=== PATIENT | male | born 1955 | race Caucasian/White ===

== ENCOUNTER 2017-04-11 10:29 | Inpatient (IN) | payer OTHER, MEDICAID ==
[2017-04-11] VITALS (10 sets, daily range): BP systolic 74–111; BP diastolic 31–73
[~2017-04-11] VITALS: Ht 182.9 cm; Wt 67.6 kg
[2017-04-11] MEDS ORDERED: NACL 0.9% 1,000 ML IV SCH (10:40)
--- NOTE | 2017-04-11 10:49 | NUR ---
Patient to bed 04 via wheelchair per patient care representative.
--- NOTE | 2017-04-11 10:49 | NUR ---
Nichelle christianson in [facility] - 04/11/17 at 1050 by JULIETA Patient to bed 04 via wheelchair per family member.
--- NOTE | 2017-04-11 10:50 | NUR ---
PT BIB FOREST MANAGEMENT TEACHER FROM [facility] WITH C/O C/O GENERALIZED WEAKNESS, LETHARGIC--LEANING TO RIGHT SIDE UPON [id number] NOTED BY LINOTYPIST "DIANA ARMANDO"-- FULL CLEAR SPEECH, NO FACIAL ASYMMETRY, A/O X4, MOVING ALL EXTREMITIES EQUALLY DENIES N/V/D, DENIES NASAL CONGESTION HX----DEPRESSION, MR, BLINDNESS RX----LEXAPRO, PREDNISONE,KEPPRA, DEPAKENE, POTASSIUM CHL 10MEQ; DENIES N/V/D; SKIN IS PINK/WARM/DRY; AAOX4 WITH EVEN AND STEADY GAIT; LUNGS CLEAR BL; HR EVEN AND REGULAR; PT DENIES ANY FEVER, CP, SOB, OR COUGH AT THIS TIME; PATIENT STATES PAIN OF 0/10 AT THIS TIME; VSS; PATIENT POSITIONED FOR COMFORT; HOB ELEVATED; BEDRAILS UP X2; BED DOWN. ER MD MADE AWARE OF PT STATUS.
[2017-04-11] MEDS ORDERED: cefTRIAXone 2,000 MG in DEXTROSE 5% 100 ML IV ONE (10:55)
[2017-04-11] MEDS ORDERED: IBUPROFEN 800 MG TAB PO ONE (11:00)
[2017-04-11] MEDS ORDERED: ACETAMINOPHEN 650 MG SUPP RC ONE (11:00)
[2017-04-11] MEDS ORDERED: NACL 0.9% 1,000 ML IV ONE (11:00)
[2017-04-11] MEDS ORDERED: ACETAMINOPHEN 325 MG SUPP RC ONE (11:07)
[2017-04-11] MEDS ORDERED: cefTRIAXone 2,000 MG VIAL ONE (11:12)
[2017-04-11 11:33] LABS: HEMOGLOBIN 13.8 g/dL (12.0-18.0); MEAN CORPUSCULAR HEMOGLOBIN 32 pg (27-31); MEAN CORPUSCULAR HGB CONC 34 g/dL (33-37); MEAN CORPUSCULAR VOLUME 96 fL (80-94); PLATELET COUNT (AUTO) 111 K/uL (140-450); RED BLOOD CELL COUNT(AUTO) 4.27 MIL/uL (4.20-6.10); WHITE BLOOD COUNT (AUTO) 13.4 K/uL (4.8-10.8)
[2017-04-11 11:42] LABS: ANION GAP 13.7 (8-16); CALCIUM 8.7 mg/dL (8.5-10.1); CARBON DIOXIDE 28.3 mmol/L (21-32); CREATININE 1.2 mg/dL (0.6-1.3)
[2017-04-11 11:46] LABS: BAND % (MANUAL) 13 % (0-8); BASOPHILS % (MANUAL) 1 % (0-2); EOSINOPHILS % (MANUAL) 1 % (0-4); LYMPHOCYTES % (MANUAL) 7 % (20-46); MONOCYTES % (MANUAL) 7 % (5-12); NEUTROPHILS % (MANUAL) 71 (43-65); PLATELET ESTIMATE ADEQUATE
[2017-04-11 11:49] LABS: LACTIC ACID 1.8 mmol/L (0.4-2.0)
[2017-04-11 11:51] LABS: INR 1.3 (0.8-1.2); PARTIAL THROMBOPLASTIN TIME 29.3 secs (22-35.6); PROTHROMBIN TIME 12.2 secs (10.8-13.4)
[2017-04-11 11:56] LABS: ALBUMIN 2.5 g/dL (3.4-5.0); TOTAL BILIRUBIN 0.6 mg/dL (0.0-1.0); TOTAL PROTEIN, SERUM 6.7 g/dL (6.4-8.2)
--- NOTE | 2017-04-11 12:00 | NUR ---
PT TAKEN OFF THE UNIT BY CHEMO CONDE VIA [facility] FOR CT OF THE HEAD AND CXR
--- NOTE | 2017-04-11 12:17 | NUR ---
Patient back from CT via larry leone.
[2017-04-11 13:04] LABS: BILIRUBIN,URINE 1+ (NEGATIVE); COLOR,URINE YELLOW (YELLOW); LEUKOCYTE ESTERASE ,URINE NEGATIVE (NEGATIVE); NITRITE, URINE NEGATIVE (NEGATIVE); PROTEIN,URINE TRACE (NEGATIVE); UGLUCOSE NEGATIVE (NEGATIVE); UROBILINOGEN,URINE 0.2 EU/dL (0.2 - 1)
[2017-04-11 13:11] LABS: APPEARANCE,URINE SL HAZY (CLEAR)
[2017-04-11 13:12] LABS: BACTERIA,URINE FEW /HPF (None Seen); ICTOTEST NEGATIVE (NEGATIVE); RBC,URINE 3-10 (FEW) /HPF (0-5); SQUAMOUS EPITHELIAL CELL,UR 0-3 (FEW) /LPF (0-3 (FEW)); WBC,URINE 0-5 (RARE) /HPF (0-5)
[2017-04-11 13:13] LABS: BLOOD, URINE 3+ (NEGATIVE)
[2017-04-11 13:15] LABS: AMPHETAMINE, URINE NEG. ng/ml (NEG <=1000); BARBITURATE, URINE NEG. ng/ml (NEG <=200); BENZODIAZEPINE, URINE NEG. ng/mL (NEG <=200); CANNABINOID, URINE NEG. ng/mL (NEG <=50); COCAINE, URINE NEG. ng/mL (NEG <=300); OPIATE, URINE NEG. ng/mL (NEG <=2000); PHENCYCLIDINE SCREEN,URINE NEG. ng/mL (NEG <=25)
[2017-04-11] MEDS ORDERED: DOCUSATE SODIUM 100 MG GELCAP PO PRN (14:05)
[2017-04-11] MEDS ORDERED: ONDANSETRON 4 MG/2 ML VIAL IM/IVP PRN (14:05)
--- NOTE | 2017-04-11 14:30 | NUR ---
Patient will be admitted to care of DR GEORGE. Admited to [facility]. Will go to room 109B. Belongings list completed. Report to RIANA HALEY.
--- NOTE | 2017-04-11 14:35 | NUR ---
RECEIVED PT ON A BED ACCOMPANIED BY ER NURSES, PT LETHARGIC BUT AROUSABLE TO NAME AND SHAKING ALERT ORIENTED TO SELF, NAME AND PLACE BUT UNABLE TO TELL TIME. LUNGS ARE CLEAR. WITH IV ACCESS AT RIGHT FOREARM 20G PATENT AND INTACT. PT ON ROOM AIR, WITH 2+PITTING EDEMA ON LEFT ANKLE, WITH SACRAL REDNESS AND STAGE 1 PRESSURE ULCER ON LEFT HIP, WITH BRUISES ON BILATERAL UPPER EXTREMITIES. OLD SCAR NOTED ON ABDOMEN AND LEFT LOWER QUADRANT, PER PT HE HAS ABDOMINAL AND HERNIA SURGERY IN THE PAST. PHOTOS TAKEN AND AFFIXED IN CHART. FALL PRECAUTIONS ENFORCED. CALL LIGHT WITHIN REACH, WILL CONTINUE TO MONITOR.
[2017-04-11] MEDS ORDERED: POTA10TA10 PO (14:37)
[2017-04-11] MEDS ORDERED: PRED5TAB7 PO (14:37)
[2017-04-11] MEDS ORDERED: ESCI5TAB PO (14:37)
[2017-04-11] MEDS ORDERED: LEVE1000 PO (14:37)
[2017-04-11] MEDS ORDERED: VALP250S20 PO (14:37)
[2017-04-11] MEDS: NACL 0.9% 1,000 ML IV SCH ×2 (15:10→21:20)
[2017-04-11] MEDS: NACL 0.9% 500 ML IV SCH ×2 (15:17→15:55)
--- NOTE | 2017-04-11 15:17 | NUR ---
NOTIFIED DR DASILVA REGARDING PT LOW BP, ADMINISTERED BOLUS OF NS 500ML. WILL REASSESS BP
--- NOTE | 2017-04-11 15:20 | NUR ---
SPOKE TO DIANA ARMANDO CAREGIVER TO OBTAIN FURTHER INFORMATION REGARDING PT
[2017-04-11 15:23] LABS: CHOL/HDL RATIO 2.7 (1-4.5); MAGNESIUM 1.6 mg/dL (1.8-2.4); PHOSPHORUS 2.5 mg/dL (2.5-4.9); THYROID STIMULATING HORMONE 1.28 uIU/mL (0.34-3.76)
--- NOTE | 2017-04-11 15:55 | NUR ---
BP STILL LOW, MD ORDERED ANOTHER BOLUS OF NS 500 ML
[2017-04-11] MEDS ORDERED: MAG SULF 2000 MG/WATER PREMIX 50 ML IV ONE (16:25)
--- NOTE | 2017-04-11 16:30 | NUR ---
DR DASILVA AT BEDSIDE ASSESSING THE PT.
[2017-04-11] MEDS: PIPER/TAZO 3.375GM/D5W PREMIX 50 ML IV SCH ×2 (17:11→23:29)
[2017-04-11] MEDS ORDERED: NACL 0.9% 500 ML IV SCH (18:30)
--- NOTE | 2017-04-11 18:30 | NUR ---
DR DASILVA INFORMED OF PT BP FLUCTUATING BETWEEN SBP 70S-80S, WILL GIVE ANOTHER 500ML BOLUS
--- NOTE | 2017-04-11 18:45 | NUR ---
NOTIFIED DR GEORGE OF VALPROIC ACID CRITICAL VALUE, NO NEW ORDERS.
--- NOTE | 2017-04-11 19:32 | NUR ---
ENDORSED PT TO NEYDA RN IN STABLE CONDITION FOR CONTINUITY OF CARE
--- NOTE | 2017-04-11 19:35 | NUR ---
RECEIVED REPORT FROM RIANA HALEY AT BEDSIDE. INITIAL ASSESSMENT COMPLETED. PT AAOX3; WITH EPISODES OF CONFUSION AT TIMES. PT LAYING IN BED. PT STABLE. VS STABLE. PT HAS SACRAL REDNESS. PT HAS PT HAS BRUISES ON BOTH ARMS. PT HAS A WOUND ON LEFT HIP. PT HAS SCDS ON. PT HAS A STEVEN CATHETER IN PLACE. PT IN BLIND ON BOTH EYES. ORIENTED PT TO ROOM AND SURROUNDINGS AND EXPLAINED PLAN OF CARE TO PT. SAFETY/FALL RISK PRECAUTIONS IN PLACE. WILL CONTINUE TO MONITOR PT. Addendum: 04/12/17 at 0252 by Rissa Coleman RN WRONG ENTRY OF: PT HAS A WOUND ON LEFT HIP.
[2017-04-11] MEDS ORDERED: ALBUTEROL SULFATE/IPRATROPIU 3 ML SOL IH PRN (19:40)
[2017-04-11] MEDS ORDERED: HYDROcodone/APAP 5/325 MG 1 TAB TAB PO PRN (19:50)
[2017-04-11] MEDS: ALBUTEROL SULFATE/IPRATROPIU 3 ML SOL IH SCH (20:17)
[2017-04-11] MEDS: levETIRAcetam 500 MG TAB PO SCH (20:53)
[2017-04-11] MEDS: DOCUSATE SODIUM 100 MG GELCAP PO SCH (20:53)
--- NOTE | 2017-04-11 20:56 | NUR ---
PT TOLERATED 2100 MEDS WELL. WILL CONTINUE TO MONITOR PT.
--- NOTE | 2017-04-11 22:04 | NUR ---
PT REQUESTING A WARM BLANKET. HE STATED THAT HE IS COLD. TEMP 98.2. ALSO, PT PLACED ON SEIZURE PRECAUTIONS. WILL CONTINUE TO MONITOR PT.
--- NOTE | 2017-04-11 22:49 | NUR ---
PT HAS A FEVER OF 100.4, WILL GIVE TYLENOL ORDERED.
[2017-04-11] MEDS: ACETAMINOPHEN 325 MG TAB PO PRN (22:50)
--- NOTE | 2017-04-11 23:20 | NUR ---
PT'S TEMPERATURE IS NOW 98.1. WILL CONTINUE TO MONITOR PT.
--- NOTE | 2017-04-11 23:46 | NUR ---
PT HAD A SMALL BM, PT CHANGED AND TURNED/REPOSITIONED. BED ALARM ON.
[2017-04-12] VITALS: BP 101/58
--- NOTE | 2017-04-12 02:05 | NUR ---
IV PUMP ALARMING; FLUSHED AND INFUSING FLUIDS WELL. WILL CONTINUE TO MONITOR PT.
[2017-04-12] MEDS: NACL 0.9% 1,000 ML IV SCH ×3 (03:00→17:48)
--- NOTE | 2017-04-12 03:45 | NUR ---
PT STATED THAT HE WAS COLD AND REQUESTED A BLANKET. PROVIDED PT WITH A BLANKET.
[2017-04-12 04:00] VITALS: BP 105/61
[2017-04-12] MEDS: PIPER/TAZO 3.375GM/D5W PREMIX 50 ML IV SCH (05:06)
[2017-04-12] MEDS: levETIRAcetam 500 MG TAB PO SCH ×3 (05:07→21:13)
--- NOTE | 2017-04-12 05:12 | NUR ---
PT TOLERATED 0500 MEDS WELL. WILL CONTINUE TO MONITOR PT.
--- NOTE | 2017-04-12 06:20 | NUR ---
RT AT BEDSIDE. WILL CONTINUE TO MONITOR PT.
[2017-04-12] MEDS: ALBUTEROL SULFATE/IPRATROPIU 3 ML SOL IH SCH ×4 (06:27→19:20)
[2017-04-12 06:50] LABS: HEMATOCRIT 33.4 % (36-52); HEMOGLOBIN 11.1 g/dL (12.0-18.0); MEAN CORPUSCULAR HEMOGLOBIN 33 pg (27-31); MEAN CORPUSCULAR HGB CONC 33 g/dL (33-37); MEAN CORPUSCULAR VOLUME 99 fL (80-94); PLATELET COUNT (AUTO) 85 K/uL (140-450); RED BLOOD CELL COUNT(AUTO) 3.38 MIL/uL (4.20-6.10); RED CELL DISTRIBUTION WIDTH 14.5 % (11.6-13.7); WHITE BLOOD COUNT (AUTO) 10.4 K/uL (4.8-10.8)
[2017-04-12 07:03] LABS: PHOSPHORUS 3.5 mg/dL (2.5-4.9)
--- NOTE | 2017-04-12 07:10 | NUR ---
RECEIVED PATIENT REPORT AT BEDSIDE. PATIENT ASLEEP BUT EASILY AROUSABLE. NO S/S OF DISTRESS NOTED. PATIENT ON 2L O2. NO C/O OF PAIN. PATIENT STATES THAT HE "FEELS TIRED AND COLD." VSS WITHIN NORMAL LIMITS. STEVEN CATHETER IN PLACE DRAINING CLEAR YELLOW URINE. IV LINE TO THE RIGHT FOREARM INTACT WITH IVF INFUSING WELL. PATIENT ON TELE MONITORING. BED LOWERED WITH CALL LIGHT WITHIN REACH. WILL CONTINUE TO MONITOR
[2017-04-12 07:11] LABS: ANION GAP 13.1 (8-16); CALCIUM 7.7 mg/dL (8.5-10.1); CARBON DIOXIDE 23.4 mmol/L (21-32); POTASSIUM 3.5 mmol/L (3.5-5.1)
--- NOTE | 2017-04-12 07:13 | NUR ---
ENDORSED PLAN OF CARE TO DAY SHIFT NURSE. PT IN STABLE CONDITION.
[2017-04-12 07:32] VITALS: BP 90/64
[2017-04-12 07:38] LABS: BAND % (MANUAL) 20 % (0-8); LYMPHOCYTES % (MANUAL) 10 % (20-46); MONOCYTES % (MANUAL) 14 % (5-12); NEUTROPHILS % (MANUAL) 56 (43-65)
[2017-04-12 07:39] LABS: BASOPHILS % (MANUAL) 0 % (0-2); EOSINOPHILS % (MANUAL) 0 % (0-4); PLATELET ESTIMATE DECREASED
[2017-04-12 07:50] LABS: INR 1.4 (0.8-1.2); PROTHROMBIN TIME 12.9 secs (10.8-13.4)
[2017-04-12] MEDS: ESCITALOPRAM 20 MG TAB PO SCH (08:52)
[2017-04-12] MEDS: POTASSIUM CHLORIDE 10 MEQ TABER PO SCH (08:52)
[2017-04-12] MEDS: DOCUSATE SODIUM 100 MG GELCAP PO SCH ×2 (08:52→21:00)
[2017-04-12] MEDS: LACTOBACILLUS RHAMNOSUS GG 1 EACH CAP PO SCH (08:52)
[2017-04-12] MEDS: predniSONE 5 MG TAB PO SCH (08:52)
--- NOTE | 2017-04-12 09:00 | NUR ---
ADMINISTERED DUE MEDS. ASSISTED PATIENT TO EAT BREAKFAST. PATIENT TOLERATED REGULAR DIET WELL
--- NOTE | 2017-04-12 10:28 | NUR ---
PATIENT HAD LOOSE BM. PATIENT CLEANED AND REPOSITIONED FOR COMFORT
[2017-04-12] MEDS ORDERED: VALPROIC ACID 250 MG/5 ML UDC PO SCH ×2 (11:00→21:00)
[2017-04-12 12:00] VITALS: BP 87/49
--- NOTE | 2017-04-12 12:30 | NUR ---
MADE DR MCCULLOUGH AWARE THAT PATIENT'S BP IS TRENDING DOWN
[2017-04-12] MEDS: PIPER/TAZO 2.25GM/D5W PREMIX 50 ML IV SCH ×3 (12:41→23:07)
--- NOTE | 2017-04-12 14:52 | NUR ---
BLOOD SUGAR 116. NO S/S OF DISTRESS NOTED. PATIENT SLEEPING COMFORTABLY
--- NOTE | 2017-04-12 14:57 | NUR ---
PT IS SLEEPING WITH NO SIGNS OF DISTRESS NOTED AT THIS TIME
--- NOTE | 2017-04-12 15:18 | NUR ---
MADE DR FITZPATRICK AWARE OF PATIENT'S BP OF 83/50. NO NEW ORDERS
[2017-04-12 16:00] VITALS: BP 83/50
--- NOTE | 2017-04-12 19:14 | NUR ---
RECEIVED REPORT FROM RIANA ALBA AT BEDSIDE. INITIAL ASSESSMENT COMPLETED. PT AAOX3; WITH EPISODES OF CONFUSION AT TIMES. PT LAYING IN BED. PT STABLE. VS STABLE. PT HAS SACRAL REDNESS. PT HAS PT HAS BRUISES ON BOTH ARMS. PT HAS SCDS ON. PT HAS A STEVEN CATHETER IN PLACE. PT IN BLIND ON BOTH EYES. ORIENTED PT TO ROOM AND SURROUNDINGS AND EXPLAINED PLAN OF CARE TO PT. SAFETY/FALL RISK PRECAUTIONS IN PLACE. WILL CONTINUE TO MONITOR PT.
--- NOTE | 2017-04-12 19:14 | NUR ---
PATIENT REPORT GIVEN AT BEDSIDE. PATIENT ENDORSED IN STABLE CONDITION
[2017-04-12 20:00] VITALS: BP 99/59
[2017-04-12] MEDS ORDERED: VALPROIC ACID 1000 MG PO SCH (21:00)
[2017-04-12] MEDS: VALPROIC ACID 250 MG/5 ML UDC PO SCH (21:13)
--- NOTE | 2017-04-12 21:18 | NUR ---
PT TOLERATED 2100 MEDS WELL. COLACE NOT GIVEN; PT STATED THAT HE HAD SEVERAL BOWEL MOVEMENTS TODAY. WILL CONTINUE TO MONITOR PT.
--- NOTE | 2017-04-12 22:05 | NUR ---
PT HAD A LARGE BROWN WATERY BOWEL MOVEMENT. PT CHANGED AND REPOSITIONED. PT TOLERATED IT WELL. WILL CONTINUE TO MONITOR PT.
--- NOTE | 2017-04-12 23:08 | NUR ---
0000 ZOSYN INFUSING NOW. PT STABLE, WILL CONTINUE TO MONITOR PT.
--- NOTE | 2017-04-12 23:50 | NUR ---
PT SLEEPING AT THIS TIME. PT STABLE, WILL CONTINUE TO MONITOR PT.
[2017-04-13] VITALS: BP 105/63
--- NOTE | 2017-04-13 01:40 | NUR ---
IV PUMP ALARMING; FLUSHED AND INFUSING WELL NOW. WILL CONTINUE TO MONITOR PT.
[2017-04-13] MEDS: NACL 0.9% 1,000 ML IV SCH ×3 (02:11→09:26)
--- NOTE | 2017-04-13 03:06 | NUR ---
PT REQUESTING A BLANKET. PROVIDED PT WITH A BLANKET. BED ALARM ON.
[2017-04-13 04:00] VITALS: BP 101/62
--- NOTE | 2017-04-13 04:44 | NUR ---
PT STABLE, PT REQUESTING A BLANKE. HE STATED THAT HE IS COLD, TEMPERATURE WITHIN NORMAL RANGE. PT DENIES DISCOMFORT. WILL CONTINUE TO MONITOR PT.
[2017-04-13] MEDS: PIPER/TAZO 2.25GM/D5W PREMIX 50 ML IV SCH ×4 (05:37→23:45)
[2017-04-13] MEDS: levETIRAcetam 500 MG TAB PO SCH ×3 (05:37→20:37)
--- NOTE | 2017-04-13 05:39 | NUR ---
PT TOLERATED 0500 AND 0600 MEDS WELL. WILL CONTINUE TO MONITOR PT.
--- NOTE | 2017-04-13 06:20 | NUR ---
AUTO CLUB SAFETY PROGRAM COORDINATOR AT BEDSIDE. PT IN STABLE CONDITION.
[2017-04-13] MEDS: ALBUTEROL SULFATE/IPRATROPIU 3 ML SOL IH SCH ×4 (06:38→19:39)
[2017-04-13 06:57] LABS: HEMATOCRIT 36.1 % (36-52); HEMOGLOBIN 11.9 g/dL (12.0-18.0); MEAN CORPUSCULAR HEMOGLOBIN 33 pg (27-31); MEAN CORPUSCULAR HGB CONC 33 g/dL (33-37); MEAN CORPUSCULAR VOLUME 99 fL (80-94); PLATELET COUNT (AUTO) 95 K/uL (140-450); RED BLOOD CELL COUNT(AUTO) 3.67 MIL/uL (4.20-6.10); RED CELL DISTRIBUTION WIDTH 14.5 % (11.6-13.7); WHITE BLOOD COUNT (AUTO) 9.9 K/uL (4.8-10.8)
[2017-04-13 07:03] LABS: ANION GAP 10.6 (8-16); CALCIUM 7.7 mg/dL (8.5-10.1); CARBON DIOXIDE 24.9 mmol/L (21-32); CREATININE 1.1 mg/dL (0.6-1.3); POTASSIUM 3.5 mmol/L (3.5-5.1)
--- NOTE | 2017-04-13 07:05 | NUR ---
ENDORSED PLAN OF CARE TO DAY SHIFT NURSE. PT IN STABLE CONDITION.
--- NOTE | 2017-04-13 07:06 | NUR ---
RECEIVED REPORT FROM THE FORM LAYER NURSE AT BEDSIDE FOR CONTINUITY OF CARE. PT AWAKE AND ALERT AND ORIENTED. INTRODUCED MYSELF AND UPDATED THE BOARD. WENT OVER THE PLAN FOR TODAY, WHICH IS TO MAKE HIM COMFORTABLY, ADMINISTER ZOSYN FOR PNA Q6H, AND CONTROL HIS DIARRHEA. HIS BLOOD COUNTS WERE LOW TODAY: URIC ACID, PHOS, AND MAG. NOTIFIED THE RESIDENT DRS. PT DENIES PAIN. IV R FA20G, INTACT AND PATENT, ADMINISTERING 150ML/HR. SCD'S ON. WILL CONTINUE TO MONITOR PT.
[2017-04-13 07:17] LABS: MAGNESIUM 1.7 mg/dL (1.8-2.4); PHOSPHORUS 2.1 mg/dL (2.5-4.9)
[2017-04-13 07:36] LABS: BAND % (MANUAL) 18 % (0-8); LYMPHOCYTES % (MANUAL) 20 % (20-46); MONOCYTES % (MANUAL) 7 % (5-12); NEUTROPHILS % (MANUAL) 54 (43-65)
[2017-04-13 07:37] LABS: EOSINOPHILS % (MANUAL) 1 % (0-4)
[2017-04-13 08:00] VITALS: BP 95/63
[2017-04-13] MEDS: DOCUSATE SODIUM 100 MG GELCAP PO SCH ×2 (08:48→20:26)
[2017-04-13] MEDS: predniSONE 5 MG TAB PO SCH (08:49)
[2017-04-13] MEDS: LACTOBACILLUS RHAMNOSUS GG 1 EACH CAP PO SCH (08:49)
[2017-04-13] MEDS: POTASSIUM CHLORIDE 10 MEQ TABER PO SCH (08:49)
[2017-04-13] MEDS: ESCITALOPRAM 20 MG TAB PO SCH (08:49)
[2017-04-13] MEDS: VALPROIC ACID 250 MG/5 ML UDC PO SCH ×2 (08:50→20:37)
--- NOTE | 2017-04-13 08:55 | NUR ---
ADMINISTERED MORNING MEDS. PT HAD 3 LOOSE BM DURING CHAIN SALES CONSULTANT PER NURSE, HELD COLACE. PT TOLERATED THEM WELL. WILL NOTIFY MD KIMBALL. LOOSE STOOLS.
--- NOTE | 2017-04-13 09:20 | NUR ---
ADMINISTERED MAG OX FOR LOW MAG AND HUNG NEW NS. NEW ORDER OF 80ML/HR. PT TOLERATED WELL PT HAD ANOTHER LOOSE BM. CLEANED PT UP. SPOKE TO DR. GROSS ABOUT IMMODIUM.
[2017-04-13] MEDS ORDERED: MAGNESIUM OXIDE 400 MG TAB PO SCH (09:28)
[2017-04-13] MEDS ORDERED: LOPERAMIDE 2 MG CAP PO PRN (09:35)
[2017-04-13] MEDS ORDERED: LOPERAMIDE 2 MG CAP PO SCH (09:45)
--- NOTE | 2017-04-13 09:56 | NUR ---
ADMINISTERED IMMODIUM FOR DIARRHEA. PT TOLERATED WELL. PT C/O BEING COLD. PUT ANOTHER BLANKET ON HIM. WILL CONTINUE TO MONITOR PT.
--- NOTE | 2017-04-13 11:13 | NUR ---
PATIENT HAS BEEN SCREENED AND CATEGORIZED MODERATE NUTRITION RISK. PATIENT WILL BE SEEN WITHIN 3-5 DAYS OF ADMISSION. 04/14/17 - 04/16/17 MONET MARIE MBA, RD Addendum: 04/14/17 at [address] PT HAS BEEN RE-SCREENED AND MEETS HIGH RISK CRITERIA. PATIENT WILL BE SEEN WITHIN 1-2 DAYS OF ADMISSION. 04/12/17-04/13/[address]
[2017-04-13 12:00] VITALS: BP 109/68
[2017-04-13] MEDS: SODIUM PHOS / POTASSIUM PHOS 1 PKT PDR PO SCH ×2 (12:17→16:18)
--- NOTE | 2017-04-13 12:20 | NUR ---
ADMINISTERED NOON MEDS AND ZOSYN. PT TOLERATED WELL. WILL CONTINUE TO MONITOR PT.
--- NOTE | 2017-04-13 13:43 | NUR ---
PT RESTING COMFORTABLY. FINISHED HAVING LUNCH. LOWERED HIS HEAD. ASKED WHAT TIME IT WAS. WILL CONTINUE TO MONITOR PT. Addendum: 04/13/17 at 1455 by Loulou Manley RN PER DEMOLITION EXPERT, PT ATE 75% OF HIS TRAY AND DRANK 125ML.
--- NOTE | 2017-04-13 14:54 | NUR ---
PT SLEEPING. NO SIGNS OF DISTRESS. WILL CONTINUE TO MONITOR PT.
[2017-04-13 16:00] VITALS: BP 93/53
--- NOTE | 2017-04-13 16:00 | NUR ---
PT IS RUNNING A FEVER 100.8F. ADMINISTERED TYLENOL. REMOVED ALL BLANKETS. WILL CONTINUE TO MONITOR.
[2017-04-13] MEDS: ACETAMINOPHEN 325 MG TAB PO PRN (16:18)
--- NOTE | 2017-04-13 17:00 | NUR ---
CHECKED THE TEMP AGAIN. 100.9F. STARTED COOLING MEASURES. ICE PACKS UNDER THE ARMS. WILL CONTINUE TO MONITOR PT.
--- NOTE | 2017-04-13 18:58 | NUR ---
FED PT DINNER. ATE 75%. CHECKED FOR FEVER. FEVER DOWN. REMOVED ICE PACKS. PT TOLERATED WELL.
--- NOTE | 2017-04-13 19:20 | NUR ---
ENDORSED PT TO THE PRECISION INSPECTOR NURSE. PT IS BEING CLEANED BY THE AIRCRAFT LAY OUT WORKER. PT IS IN STABLE CONDITION.
--- NOTE | 2017-04-13 19:21 | NUR ---
RECEIVED REPORT FROM DAY RN FOR CONTINUITY OF CARE. PATIENT IS A&OX3, DISCUSSED PLAN OF CARE WITH PATIENT, ABLE TO VERBALIZE UNDERSTANDING. SHIFT ASSESSMENT DONE, VS TAKEN, LOW B/P NOTED, PT ASYMPTOMATIC WILL FOLLOW UP WITH MD. NO S/S OF RESPIRATORY DISTRESS OR DISCOMFORT NOTED ON 2L NC. PATIENT DENIES PAIN. IV TO RT FA 20 GAUGE PATENT AND INFUSING FLUIDS WELL. BILATERAL UPPER EXTREMITY BRUISING AND SACRAL REDNESS NOTED. STEVEN CATHETER IN PLACE, CLEAR YELLOW URINE NOTED. SCDS IN PLACE. SAFETY/ FALL PRECAUTIONS ENFORCED. WILL CONTINUE TO MONITOR.
[2017-04-13 20:00] VITALS: BP 81/54
--- NOTE | 2017-04-13 20:37 | NUR ---
DUE MEDICATIONS ADMINISTERED, TOLERATED WELL. REPOSITIONED PATIENT, TOLERATED WELL.
--- NOTE | 2017-04-13 20:54 | NUR ---
DR. GUAN IN TO SEE PATIENT.
--- NOTE | 2017-04-13 21:40 | NUR ---
SPOKE TO DR. JOHN REGARDING PATIENTS LOW BLOOD PRESSURE. INFORMED MD UNABLE TO PUT ORDERS FOR [employer], PER OK TO PUT TELEPHONE ORDER FOR 1L NS BOLUS, ALSO INSTRUCTED TO HOLD ANY ATIVAN OR PAIN MEDICATION FOR NOW. WILL FOLLOW OUT ORDERED.
[2017-04-13] MEDS ORDERED: NACL 0.9% 1,000 ML IV ONE (21:45)
--- NOTE | 2017-04-13 21:50 | NUR ---
STARTED NS BOLUS, TURNED AND REPOSITIONED PATIENT. WILL CONTINUE TO MONITOR.
--- NOTE | 2017-04-13 23:45 | NUR ---
VS TAKEN, B/P UP TO . DUE ANTIBIOTICS ADMINISTERED. PROVIDED PT WITH WARM BLANKET AND REPOSITIONED. WILL CONTINUE TO MONITOR.
[2017-04-14] VITALS: BP 89/56
--- NOTE | 2017-04-14 02:00 | NUR ---
TURNED AND REPOSITIONED PATIENT, NO S/S OF DISTRESS NOTED. B/P TAKEN, TRENDING UP. WILL CONTINUE TO MONITOR.
[2017-04-14 04:00] VITALS: BP 104/52
--- NOTE | 2017-04-14 04:15 | NUR ---
VS TAKEN, STABLE. TURNED AND CLEANED PATIENT. WILL CONTINUE TO MONITOR.
[2017-04-14] MEDS: levETIRAcetam 500 MG TAB PO SCH ×3 (04:46→20:50)
[2017-04-14] MEDS: PIPER/TAZO 2.25GM/D5W PREMIX 50 ML IV SCH ×4 (05:22→23:15)
[2017-04-14] MEDS: NACL 0.9% 1,000 ML IV SCH (05:22)
--- NOTE | 2017-04-14 06:00 | NUR ---
TURNED AND REPOSITIONED PATIENT. EMPTIED STEVEN CATHETER. PATIENT STATES HE IS TIRED AND WANTS TO SLEEP. WILL CONTINUE TO MONITOR.
[2017-04-14] MEDS: ALBUTEROL SULFATE/IPRATROPIU 3 ML SOL IH SCH ×4 (07:03→19:23)
--- NOTE | 2017-04-14 07:24 | NUR ---
ENDORSED PATIENT TO DAY RN FOR CONTINUITY OF CARE, PATIENT IS IN STABLE CONDITION.
--- NOTE | 2017-04-14 07:26 | NUR ---
RECEIVED REPORT FROM NIGHT RIANA ELLIOTT. PT RESTING IN BED. AAOX3. NO S/S OF ACUTE DISTRESS.PT DENIES PAIN AT THIS TIME. IV SITE PATENT AND INTACT. STEVEN CATHETER PATENT. ON O2 2L NC. TELE BOX IN PLACE. ALL NEEDS MET. CALL LIGHT WITHIN REACH. SAFETY MEASURES ENSURED. WILL CONTINUE TO MONITOR.
[2017-04-14 07:47] VITALS: BP 135/85
[2017-04-14 08:00] LABS: HEMATOCRIT 39.7 % (36-52); HEMOGLOBIN 12.9 g/dL (12.0-18.0); MEAN CORPUSCULAR HEMOGLOBIN 32 pg (27-31); MEAN CORPUSCULAR HGB CONC 33 g/dL (33-37); MEAN CORPUSCULAR VOLUME 98 fL (80-94); PLATELET COUNT (AUTO) 80 K/uL (140-450); RED BLOOD CELL COUNT(AUTO) 4.04 MIL/uL (4.20-6.10); RED CELL DISTRIBUTION WIDTH 14.6 % (11.6-13.7); WHITE BLOOD COUNT (AUTO) 6.6 K/uL (4.8-10.8)
[2017-04-14 08:10] LABS: CALCIUM 8.3 mg/dL (8.5-10.1); CARBON DIOXIDE 27.6 mmol/L (21-32); CREATININE 1.2 mg/dL (0.6-1.3); POTASSIUM 3.6 mmol/L (3.5-5.1)
[2017-04-14 08:14] LABS: MAGNESIUM 1.7 mg/dL (1.8-2.4); PHOSPHORUS 2.3 mg/dL (2.5-4.9)
[2017-04-14] MEDS: SODIUM PHOS / POTASSIUM PHOS 1 PKT PDR PO SCH ×3 (08:44→17:29)
[2017-04-14] MEDS: ESCITALOPRAM 20 MG TAB PO SCH (08:45)
[2017-04-14] MEDS: predniSONE 5 MG TAB PO SCH (08:45)
[2017-04-14] MEDS: LACTOBACILLUS RHAMNOSUS GG 1 EACH CAP PO SCH (08:45)
[2017-04-14] MEDS: POTASSIUM CHLORIDE 10 MEQ TABER PO SCH (08:45)
[2017-04-14] MEDS: DOCUSATE SODIUM 100 MG GELCAP PO SCH ×2 (08:45→20:50)
[2017-04-14] MEDS: VALPROIC ACID 250 MG/5 ML UDC PO SCH ×2 (08:46→20:50)
--- NOTE | 2017-04-14 08:53 | NUR ---
AM MEDICATIONS GIVEN WITH EDUCATION. PT VERBALIZED UNDERSTANDING. PT TOLERATED WELL. NO S/S OF ACUTE DISTRESS. PT DENIES PAIN. CALL LIGHT WITHIN REACH. WILL CONTINUE TO MONITOR.
[2017-04-14 09:04] LABS: BAND % (MANUAL) 9 % (0-8); LYMPHOCYTES % (MANUAL) 14 % (20-46); MONOCYTES % (MANUAL) 9 % (5-12); NEUTROPHILS % (MANUAL) 68 (43-65)
[2017-04-14] MEDS ORDERED: MAGNESIUM OXIDE 400 MG TAB PO SCH (10:24)
--- NOTE | 2017-04-14 10:50 | NUR ---
PT IS SLEEPING WITH NO SIGNS OF DISTRESS NOTED AT THIS TIME
[2017-04-14] MEDS ORDERED: FUROSEMIDE 40 MG/4 ML VIAL IVP SCH (11:21)
--- NOTE | 2017-04-14 11:38 | NUR ---
PT SLEEPING IN BED. NO S/S OF ACUTE DISTRESS. PT TAKEN OFF TELE MONITOR. DR. JOHN MADE AWARE OF PT'S BP OF 89/52. CALL LIGHT WITHIN REACH. SAFETY MEASURES ENSURED. WILL CONTINUE TO MONITOR.
--- NOTE | 2017-04-14 13:38 | NUR ---
PT RESTING IN BED. NO S/S OF ACUTE DISTRESS. PT DENIES PAIN. CALL LIGHT WITHIN REACH. SAFETY MEASURES ENSURED. WILL CONTINUE TO MONITOR.
--- NOTE | 2017-04-14 14:19 | NUR ---
04/14/17 RD INITIAL ASSESSMENT COMPLETED PLEASE REFER TO NUTRITION ASSESSMENT UNDER CARE ACTIVITY FOR ESTIMATED NUTRITIONAL NEEDS. 1. CONTINUE REGULAR DIET 2. RD TO FOLLOW-UP 2-3 DAYS; HIGH RISK CHAN RAMIREZ RD
--- NOTE | 2017-04-14 14:58 | NUR ---
MET WITH DIANA CAREGIVER AT BEDSIDE AND DISCUSSED DISCHARGE PLAN. DIANA STATED THAT PT DID INFORM HIM THAT HE DOES NOT WANT TO GO TO SNF AND WANTS TO RETURN HOME ON DISCHARGE. CALL PLACED TO [facility] GRINDER MILL OPERATOR AND LEFT MESSAGE FOR CALL BACK TO DISCUSS PTS CARE NEEDS. [phone]
--- NOTE | 2017-04-14 15:09 | NUR ---
PT IS SLEEPING NO HHN GIVEN NO SIGNS OF DISTRESS NOTED AT THIS TIME
--- NOTE | 2017-04-14 15:35 | NUR ---
PT SLEEPING IN BED. NO S/S OF ACUTE DISTRESS. CALL LIGHT WITHIN REACH. SAFETY MEASURES ENSURED. WILL CONTINUE TO MONITOR.
[2017-04-14 16:00] VITALS: BP 98/49
--- NOTE | 2017-04-14 19:05 | NUR ---
ENDORSED PLAN OF CARE TO NIGHT RN. PT REMAINS IN STABLE CONDITION.
--- NOTE | 2017-04-14 19:30 | NUR ---
ASSUMED CARE OF PATIENT, AWAKE, ALERT AND ORIENTED. FRONT DESK PERSON AT BEDSIDE PERICARE DONE AND COMPLETE BEDBATH RENDERED AND REPOSITIONED. NO COMPLAINS. CALL LIGHT WITHIN REACH.
--- NOTE | 2017-04-14 20:45 | NUR ---
DUE MEDS GIVEN, TOLERATED WELL. NO COMPLAINS NOTED. PLAN OF CARE DISCUSSED WITH PATIENT, REINFORCEMENT NEEDED. ASSISTED WITH REPOSITIONING. CALL LIGHT WITHIN REACH.
[2017-04-14] MEDS: MAGNESIUM OXIDE 400 MG TAB PO SCH (20:50)
[2017-04-14 23:17] VITALS: BP 104/62
--- NOTE | 2017-04-14 23:19 | NUR ---
VITAL SIGNS STABLE. SLEEPING WELL, EASILY AROUSABLE NOTED. NO COMPLAINS. CALL LIGHT WITHIN REACH. REPOSITIONED.
[2017-04-15] MEDS: levETIRAcetam 500 MG TAB PO SCH ×2 (05:09→12:21)
[2017-04-15] MEDS: PIPER/TAZO 2.25GM/D5W PREMIX 50 ML IV SCH ×2 (05:09→12:20)
[2017-04-15 06:23] LABS: HEPATITIS B SURFACE ANTIGEN Negative (Negative); HEPATITIS C VIRUS ANTIBODY 0.1 s/co ratio (0.0-0.9)
[2017-04-15] MEDS ORDERED: OXYTOCIN 10 UNITS/ML VIAL ONE (07:00)
--- NOTE | 2017-04-15 07:05 | NUR ---
ENDORSED CARE AT BEDSIDE WITH BENEDICT MAYERS. PATIENT IN STABLE CONDITION.
--- NOTE | 2017-04-15 07:07 | NUR ---
RECEIVED REPORT FROM NIGHT RN. PT RESTING IN BED. AAOX3. NO S/S OF ACUTE DISTRESS. PT DENIES PAIN. IV SITE PATENT AND INTACT. STEVEN PATENT. ON O2 2L NC. BRUISES TO BUE NOTED. CALL LIGHT WITHIN REACH. SAFETY MEASURES ENSURED. WILL CONTINUE TO MONITOR.
[2017-04-15] MEDS: ALBUTEROL SULFATE/IPRATROPIU 3 ML SOL IH SCH ×3 (07:27→16:06)
[2017-04-15 07:45] VITALS: BP 98/64
[2017-04-15] MEDS: DOCUSATE SODIUM 100 MG GELCAP PO SCH (08:12)
[2017-04-15] MEDS: MAGNESIUM OXIDE 400 MG TAB PO SCH (08:12)
[2017-04-15] MEDS: LACTOBACILLUS RHAMNOSUS GG 1 EACH CAP PO SCH (08:12)
[2017-04-15] MEDS: ESCITALOPRAM 20 MG TAB PO SCH (08:12)
[2017-04-15] MEDS: predniSONE 5 MG TAB PO SCH (08:12)
[2017-04-15] MEDS: VALPROIC ACID 250 MG/5 ML UDC PO SCH (08:13)
[2017-04-15] MEDS: POTASSIUM CHLORIDE 10 MEQ TABER PO SCH (08:13)
[2017-04-15] MEDS: SODIUM PHOS / POTASSIUM PHOS 1 PKT PDR PO SCH ×2 (08:13→12:21)
--- NOTE | 2017-04-15 08:13 | NUR ---
AM MEDICATIONS GIVEN WITH EDUCATION. PT VERBALIZED UNDERSTANDING. PT TOLERATED AM MEDS WELL. NO S/S OF ACUTE DISTRESS. WILL CONTINUE TO MONITOR.
[2017-04-15 09:29] VITALS: BP 98/64
--- NOTE | 2017-04-15 10:43 | NUR ---
DIANA ARMANDO NOTIFIED OF DISCHARGE. HE STATES SOMEONE WILL BE HERE TO NETWORKING TECHNICIAN AT [phone].
[2017-04-15] MEDS ORDERED: LEVO500T22 PO (10:49)
[2017-04-15] MEDS ORDERED: LACT10CA PO (10:49)
[2017-04-15] MEDS ORDERED: CLIN300C15 PO (10:49)
[2017-04-15] MEDS ORDERED: PHOS1PDR4 PO (10:51)
[2017-04-15] MEDS ORDERED: MAG400 PO (10:51)
[2017-04-15] MEDS ORDERED: ALBU0.0912 IH (10:54)
--- NOTE | 2017-04-15 12:02 | NUR ---
PT SLEEPING IN BED. NO S/S OF ACUTE DISTRESS PT O2 94% ON 3L NC. CALL LIGHT WITHIN REACH. SAFETY MEASURES ENSURED. WILL CONTINUE TO MONITOR.
--- NOTE | 2017-04-15 12:19 | NUR ---
ENTRY FOR 04/14/17 0757 SPOKE WITH CONNIE LANG FOR [facility]. PER CONNIE PT IS ABLE TO MAKE HIS OWN MEDICAL DECISIONS. HE DOES HAVE A COUSIN WHO SHE BELIEVES LIVES IN [place] AND IF PT WAS NOT ABLE TO MAKE HIS OWN DECISIONS AND THE COUSIN COULD NOT BE LOCATED THEN THE [facility] WOULD OVER SEE PTS CARE. INFORMED HER THAT PT MOST LIKELY WILL BE DISCHARGING TOMORROW BACK TO [facility].
--- NOTE | 2017-04-15 13:21 | NUR ---
1030 SPOKE WITH DIANA PT CAREGIVER AND INFORMED HIM THAT PT WILL BE DISCHARGED TO HOME TODAY AND A FWW AND HOME PT HAS BEEN ORDERED. DIANA IS IN AGREEMENT AND STATED DOES NOT HAVE ANY PREFERENCES FOR HOME HEALTH SERVICE AND IN AGREEMENT WITH [facility] . 1236 ORDER FOR FWW AND CLINICAL INFORMATION FAXED TO [email or web address] [phone] AND PHONE [phone]. HOME HEALTH ORDER AND CLINICAL FAXED TO [facility] AT FAX [phone] AND PHONE [phone].
--- NOTE | 2017-04-15 16:06 | NUR ---
PT CLEARED FOR DISCHARGE. NO S/S OF ACUTE DISTRESS. DISCHARGE INSTRUCTIONS PROVIDED TO PT AND DRAWING CHECKER. BOTH VERBALIZE UNDERSTANDING. IV TAKEN OUT. TIP INTACT. PT TAKEN OFF UNIT. PT REMAINS STABLE.
--- NOTE | 2017-04-16 12:29 | NUR ---
RECEIVED A CALL 04/15 1430 FROM [employer] THAT THEY DO NOT HAVE THE COMPETITIVE BID FOR MEDICARE DME AND CANNOT PROVIDE WALKER. 1200 CALL PLACED TO [employer] [phone] FAX [phone] AND CONFIRMED THEY HAVE THE [facility] DME BID. INFORMATION FAXED OVER WITH ORDER FOR FWW.
--- NOTE | 2017-04-20 13:37 | NUR ---
Social Service Note: Per Kalli from [facility] , fww was delivered to patient's home on 04/18/17.
== END 2017-04-15 16:03 | disposition home health service (06) | DRG 871 ==
LOC: MED 10:29 → MTU 14:07
PROVIDERS: ADMIT Family Medicine; ATTEND Family Medicine
DX: A41.9 Sepsis, unspecified organism (principal); J69.0 Pneumonitis due to inhalation of food and vomit; G93.41 Metabolic encephalopathy; N17.0 Acute kidney failure with tubular necrosis; I50.43 Acute on chronic combined systolic (congestive) and diastolic (congestive) heart failure; E87.0 Hyperosmolality and hypernatremia; N13.30 Unspecified hydronephrosis; E83.42 Hypomagnesemia; F32.9 Major depressive disorder, single episode, unspecified; F79 Unspecified intellectual disabilities; G40.909 Epilepsy, unspecified, not intractable, without status epilepticus; H54.0 Blindness, both eyes; E86.0 Dehydration; E83.39 Other disorders of phosphorus metabolism; D64.9 Anemia, unspecified; D69.6 Thrombocytopenia, unspecified; R26.9 Unspecified abnormalities of gait and mobility; E87.6 Hypokalemia; G80.9 Cerebral palsy, unspecified; E83.51 Hypocalcemia; N18.9 Chronic kidney disease, unspecified; Z90.49 Acquired absence of other specified parts of digestive tract; Z90.5 Acquired absence of kidney; Z88.2 Allergy status to sulfonamides; Z79.899 Other long term (current) drug therapy; Z56.0 Unemployment, unspecified; Z87.891 Personal history of nicotine dependence; Z80.0 Family history of malignant neoplasm of digestive organs
CPT/HCPCS: 36415; 70450; 71010; 76705; 76770; 80048; 80053; 80305; 81001; 82150; 82553; 82948; 83036; 83605; 83690; 83735; 83880; 84100; 84436; 84439; 84443; 84479; 84484; 84550; 85025; 85610; 85730; 86803; 87040; 87081; 87086; 87340; 93005; 94640; 96361; 96365; 97110; 97116; 97140; 97530; 99285; J0696; J2543; J2590; J3475; J7030; J7060; J7512; J7620; Q0092

== ENCOUNTER 2017-05-18 09:13 | Inpatient (IN) | payer MEDICAID, OTHER ==
[~2017-05-18] VITALS: Ht 182.9 cm; Wt 66.7 kg
[~2017-05-18 09:13] MED LIST: ALBU0.0912 IH; CLIN300C15 PO; ESCI5TAB PO; LACT10CA PO; LEVE1000 PO; LEVO500T22 PO; MAG400 PO; PHOS1PDR4 PO; POTA10TA10 PO; PRED5TAB7 PO; VALP250S20 PO
[2017-05-18 09:20] VITALS: BP 93/64
[2017-05-18] MEDS ORDERED: KETOROLAC 30 MG/ML VIAL IVP ONE (09:30)
[2017-05-18] MEDS ORDERED: ONDANSETRON 4 MG/2 ML VIAL IVP ONE (09:30)
[2017-05-18] MEDS ORDERED: NACL 0.9% 1,000 ML IV ONE ×2 (09:30→16:25)
--- NOTE | 2017-05-18 09:39 | NUR ---
ER AT BEDSIDE
--- NOTE | 2017-05-18 09:39 | NUR ---
PATIENT PRESENTS TO ED WITH C/O FEVER, HEADACHE, SHAKING, WITH UNSTEADY GAIT, DIZZY, NAUSEA TODAY TEMP ON ARIVAL 99.4 TEMPORAL; HX; MR, BLIND; DENIES N/V/D; SKIN IS PINK/WARM/DRY; AAOX4 ; W/ PRODUCTIVE COUGH ;HR EVEN AND REGULAR; PATIENT STATES PAIN OF 2/10 HEADACHE AT THIS TIME; PATIENT POSITIONED FOR COMFORT; HOB ELEVATED; BEDRAILS UP X2; BED DOWN.ALL MONITORS IN PLACED.
--- NOTE | 2017-05-18 09:58 | NUR ---
XRAY AT BEDSIDE.
[2017-05-18 10:07] LABS: CALCIUM 8.7 mg/dL (8.5-10.1); CARBON DIOXIDE 28.5 mmol/L (21-32); CREATININE 1.2 mg/dL (0.7-1.3); POTASSIUM 3.5 mmol/L (3.5-5.1)
[2017-05-18 10:12] LABS: HEMATOCRIT 39.5 % (36-52); HEMOGLOBIN 13.3 g/dL (12.0-18.0); MEAN CORPUSCULAR HEMOGLOBIN 34 pg (27-31); MEAN CORPUSCULAR HGB CONC 34 g/dL (33-37); MEAN CORPUSCULAR VOLUME 99 fL (80-94); PLATELET COUNT (AUTO) 115 K/uL (140-450); RED BLOOD CELL COUNT(AUTO) 3.98 MIL/uL (4.20-6.10); RED CELL DISTRIBUTION WIDTH 14.3 % (11.6-13.7); WHITE BLOOD COUNT (AUTO) 11.9 K/uL (4.8-10.8)
[2017-05-18 10:14] LABS: ALBUMIN 2.6 g/dL (3.4-5.0); TOTAL BILIRUBIN 0.5 mg/dL (0.0-1.0); TOTAL PROTEIN, SERUM 6.9 g/dL (6.4-8.2)
[2017-05-18 10:17] LABS: INR 1.1 (0.8-1.2); PARTIAL THROMBOPLASTIN TIME 25.4 secs (22-35.6); PROTHROMBIN TIME 11.4 secs (10.8-13.4)
--- NOTE | 2017-05-18 10:18 | NUR ---
PT RESTING ON BED;COMFORT MEAUSURES DONE;NO ACUTE DISTRESS NOTED;WILL CONTINUE TO MONITOR PT.
[2017-05-18 10:21] LABS: BILIRUBIN,URINE NEGATIVE (NEGATIVE); COLOR,URINE YELLOW (YELLOW); LEUKOCYTE ESTERASE ,URINE NEGATIVE (NEGATIVE); NITRITE, URINE NEGATIVE (NEGATIVE); PROTEIN,URINE NEGATIVE (NEGATIVE); UGLUCOSE NEGATIVE (NEGATIVE); UROBILINOGEN,URINE 0.2 EU/dL (0.2 - 1)
[2017-05-18 10:28] LABS: RBC,URINE 11-20 (MOD) /HPF (0-5); WBC,URINE 0-5 (RARE) /HPF (0-5)
[2017-05-18 10:29] LABS: BACTERIA,URINE None Seen /HPF (None Seen); BLOOD, URINE 3+ (NEGATIVE); SQUAMOUS EPITHELIAL CELL,UR 0-3 (FEW) /LPF (0-3 (FEW))
[2017-05-18 10:30] LABS: APPEARANCE,URINE SL.HAZY (CLEAR)
[2017-05-18 10:30] LABS: BAND % (MANUAL) 17 % (0-8); LYMPHOCYTES % (MANUAL) 8 % (20-46); MONOCYTES % (MANUAL) 9 % (5-12); NEUTROPHILS % (MANUAL) 66 (43-65)
[2017-05-18] MEDS ORDERED: cefTRIAXone 1,000 MG VIAL ONE (11:10)
--- NOTE | 2017-05-18 11:27 | NUR ---
Patient will be admitted to care of DR STEPHENSON. Admited to TELE. Will go to room 107 A. Belongings list completed. Report to RIANA GARAY.
--- NOTE | 2017-05-18 11:35 | NUR ---
CAN'T RECONCILE MEDICATION;PT IS UNABLE TO REMEMBER WHAT HE IS TAKING.
[2017-05-18] MEDS ORDERED: ACETAMINOPHEN 325 MG TAB PO PRN (11:40)
[2017-05-18] MEDS ORDERED: ONDANSETRON 4 MG/2 ML VIAL IVP PRN (11:40)
[2017-05-18 11:55] VITALS: BP 105/49
--- NOTE | 2017-05-18 11:55 | NUR ---
PT BROUGHT UP FROM ER IN [facility], PT AAOX2-3, PT THINKS IT'S YEAR 1993. RESP EVEN UNLABORED ON ROOM AIR, MOVES ALL EXT X4, ABLE TO ASSIST WITH TRANSFER TO BED, SKIN INTACT, BRUISING NOTED TO BILAT FORARMS BUT SKIN INTACT, BILAT FEET WITH EDEMA +3, PT LEGALLY BLIND, SIGN POSTED, FALL PRECAUTIONS INITIATED, PT ORIENTED TO ROOM AND FLOOR, CALL BECERRA WITHIN REACH, SIDE RAILS UP, WILL CONTINUE TO MOTNIOR
[2017-05-18] MEDS ORDERED: MECLIZINE 25 MG TAB PO PRN (12:05)
[2017-05-18 12:58] LABS: AMPHETAMINE, URINE NEG. ng/ml (NEG <=1000); BARBITURATE, URINE NEG. ng/ml (NEG <=200); BENZODIAZEPINE, URINE NEG. ng/mL (NEG <=200); CANNABINOID, URINE NEG. ng/mL (NEG <=50); COCAINE, URINE NEG. ng/mL (NEG <=300); OPIATE, URINE NEG. ng/mL (NEG <=2000); PHENCYCLIDINE SCREEN,URINE NEG. ng/mL (NEG <=25)
--- NOTE | 2017-05-18 13:00 | NUR ---
PT SITTING UP EATING LUNCH, PT DECLINES ASSIST WITH FEEDING, FEEDING HIMSELF WELL.
[2017-05-18 13:22] LABS: VALPROIC ACID 92 ug/ml (50-100)
[2017-05-18 13:25] LABS: ALCOHOL, BLOOD < 3 mg/dL (<3)
--- NOTE | 2017-05-18 13:50 | NUR ---
PT TO CT SCAN
--- NOTE | 2017-05-18 15:25 | NUR ---
BRADYCARDIA NOTED ON MONITOR, SINUS BLAINE DOWN TO 45 AT SLOWEST, BP 98/50-102/53, PT SLEEPING, AROUSES EASILY BY VOICE, DENIES CHEST PAIN OR SOB, DR CASTELLANOS NOTIFIED.
[2017-05-18 16:00] VITALS: BP 102/53
--- NOTE | 2017-05-18 18:15 | NUR ---
PT SLEEPING QUIETLY IN NAD, RESP EVEN UNLABORED, AROUSES EASILY BY VOICE, CONSENT FOR IV CONTRAST OBTAINED, 20G PIV STARTED TO RIGHT UPPER ARM, PT ROSALIE WELL, PT NOW SITTING UP FOR DINNER. WILL NOTIFY RADIOLOGY
[2017-05-18] MEDS ORDERED: ASPIRIN 81 MG TAB.CHEW PO SCH (19:00)
--- NOTE | 2017-05-18 19:10 | NUR ---
STOOL SAMPLE COLLECTED, PERICARE DONE, DIAPER CHANGED.
--- NOTE | 2017-05-18 19:25 | NUR ---
REPORT GIVEN TO LOAN OPERATIONS SPECIALIST NURSE, PT IN STABLE CONDITION.
--- NOTE | 2017-05-18 19:28 | NUR ---
RECEIVED PT IN STABLE CONDITION FROM AM NURSE. AWAKE,ALERT, ORIENTED X2-3. WITH PERIODS OF CONFUSION. NO ACUTE DISTRESS NOTED. BEDREST. ON TELE MONITOR. WITH IVF INFUSING WELL ON THE RT ARM #20. CLEAR AND PATENT. BED ON LOW POSITION . FREQUENT ROUNDS NEEDED. CALL LIGHT PLACED WITHIN EASY REACH. WILL CONTINUE TO MONITOR.
[2017-05-18 20:00] VITALS: BP 104/60
--- NOTE | 2017-05-18 20:42 | NUR ---
CONSENT FOR CT ABDOMEN /PELVIS SINGED BY PT AND MD. PICKED UP BY BED TO CT DEPARTMENT .
--- NOTE | 2017-05-18 21:10 | NUR ---
BACK FROM CT DEPT . WILL FOLLOW UP RESULT OF CT ABDOMEN/PELVIS.
[2017-05-18] MEDS: metroNIDAZOLE 500 MG/NS PREMIX 100 ML IV SCH (21:28)
[2017-05-18] MEDS: SIMVASTATIN 20 MG TAB PO SCH (22:48)
--- NOTE | 2017-05-18 22:50 | NUR ---
DR. ZAVALA MADE AWARE OF RESULT OF CT ABDOMEN /PELVIS. WITH ORDER TO STRAIN ALL URINE.
--- NOTE | 2017-05-18 23:06 | NUR ---
HR ON MONITOR 40 . ASSESSES PT. ASLEEP. AWAKEN AND ASKED IF OK, NO C/O ANY DISCOMFORT OR PAIN NOTED. WILL CONTINUE TO MONITOR. HR RECHECKED 48/MIN.
[2017-05-19 00:10] VITALS: BP 105/60
--- NOTE | 2017-05-19 01:00 | NUR ---
BLOOD WAS DRAWN EARLIER FOR TROPONIN LEVEL . RESULT NEGATIVE.
--- NOTE | 2017-05-19 02:00 | NUR ---
MADE ROUNDS. PT ASLEEP. NO S/S FO ANY DISCOMFORT NOR DISTRESS NOTED. WILL CONTINUE TO MONITOR.
[2017-05-19 04:04] VITALS: BP 105/69
[2017-05-19] MEDS: metroNIDAZOLE 500 MG/NS PREMIX 100 ML IV SCH ×3 (04:45→20:17)
--- NOTE | 2017-05-19 05:26 | NUR ---
HR ON MONITOR @0519 ONLY 36/MIN.. PT IS ASLEEP. ASYMPTOMATIC. NO DISTRESS NOTED. DR. MENDOZA HERE AND MADE AWARE. NO NEW ORDER MADE. WILL CONTINUE TO MONITOR.
[2017-05-19 06:50] LABS: HEMATOCRIT 36.1 % (36-52); HEMOGLOBIN 11.7 g/dL (12.0-18.0); MEAN CORPUSCULAR HEMOGLOBIN 33 pg (27-31); MEAN CORPUSCULAR HGB CONC 33 g/dL (33-37); MEAN CORPUSCULAR VOLUME 100 fL (80-94); PLATELET COUNT (AUTO) 87 K/uL (140-450); RED BLOOD CELL COUNT(AUTO) 3.61 MIL/uL (4.20-6.10); RED CELL DISTRIBUTION WIDTH 14.3 % (11.6-13.7); WHITE BLOOD COUNT (AUTO) 6.7 K/uL (4.8-10.8)
[2017-05-19 06:51] LABS: CALCIUM 7.6 mg/dL (8.5-10.1)
[2017-05-19 07:01] LABS: MAGNESIUM 1.6 mg/dL (1.8-2.4); PHOSPHORUS 2.7 mg/dL (2.5-4.9)
[2017-05-19 07:10] LABS: ANION GAP 7.7 (8-16); CARBON DIOXIDE 28.6 mmol/L (21-32); POTASSIUM 3.3 mmol/L (3.5-5.1)
--- NOTE | 2017-05-19 07:15 | NUR ---
ENDORSED PT IN STABLE CONDITION TO AM NURSE FOR CONTINUITY OF CARE.
--- NOTE | 2017-05-19 07:15 | NUR ---
RECEIVED PT REPORT AT BEDSIDE FROM NIGHT NURSE. PT IS AAOX4 AND SHOWS NO S/S OF DISTRESS ON ROOM AIR. PT DENIES PAIN. PT HAS IV ON THE L AC HEPLOCKED AND R UA IV WITH IVF'S INFUSING WELL. PT SKIN IS INTACT. PT IS AWARE OF POC FOR TODAY AND VERBALIZED UNDERSTANDING. THE BED IS LOWERED WITH CALL LIGHT WITHIN REACH.
[2017-05-19 07:20] LABS: BAND % (MANUAL) 17 % (0-8)
[2017-05-19 07:26] LABS: LYMPHOCYTES % (MANUAL) 24 % (20-46); MONOCYTES % (MANUAL) 9 % (5-12); NEUTROPHILS % (MANUAL) 50 (43-65)
[2017-05-19 07:27] LABS: PLATELET ESTIMATE DECREASED
[2017-05-19 08:00] VITALS: BP 120/57
--- NOTE | 2017-05-19 08:00 | NUR ---
PT SHOWS NO S/S OF DISTRESS ON ROOM AIR.
[2017-05-19] MEDS ORDERED: POTASSIUM CHLORIDE 10 MEQ TABER PO SCH ×2 (08:27→10:26)
[2017-05-19] MEDS ORDERED: MAG SULF 2000 MG/WATER PREMIX 50 ML IV SCH (08:27)
--- NOTE | 2017-05-19 08:57 | NUR ---
PATIENT HAS BEEN SCREENED AND CATEGORIZED HIGH NUTRITION RISK. PATIENT WILL BE SEEN WITHIN 1-2 DAYS OF ADMISSION. 05/19/17-05/20/[address]
[2017-05-19] MEDS ORDERED: VALPROIC ACID 250 MG/5 ML UDC PO SCH (09:09)
[2017-05-19] MEDS: LEVOFLOXACIN 500 MG/D5W PREMIX 100 ML IV SCH (09:19)
[2017-05-19] MEDS: TAMSULOSIN 0.4 MG CAP PO SCH (09:20)
[2017-05-19] MEDS: PHENAZOPYRIDINE 100 MG TAB PO SCH ×3 (09:20→17:04)
[2017-05-19] MEDS: ASPIRIN 81 MG TAB.CHEW PO SCH (09:21)
[2017-05-19] MEDS: LACTOBACILLUS RHAMNOSUS GG 1 EACH CAP PO SCH (09:21)
[2017-05-19] MEDS: ESCITALOPRAM 20 MG TAB PO SCH (09:21)
--- NOTE | 2017-05-19 09:30 | NUR ---
ADMINISTERED SCHEDULED MEDICATIONS. PT TOLERATED ACTIVITY WELL. PT DENIES PAIN. PT WAS SEEN BY
[2017-05-19] MEDS: NACL 0.9% 1,000 ML IV SCH ×2 (10:31→19:45)
--- NOTE | 2017-05-19 10:36 | NUR ---
PT SAT HIMSELF UP IN BED AND IS EATING A LATE BREAKFAST. PT IS TOLERATING CLEAR LIQUID DIET WELL. PT DENIES N/V. PT SHOWS NO S/S OF DISTRESS ON ROOM AIR.
[2017-05-19 12:00] VITALS: BP 126/101
--- NOTE | 2017-05-19 12:30 | NUR ---
PT IS EATING LUNCH AND SHOWS NO S/S OF DISTRESS ON ROOM AIR. PT IS TOLERATING DIET WELL. PT DENIES N/V AND ABD PAIN. WILL CONTINUE TO MONITOR.
--- NOTE | 2017-05-19 13:10 | NUR ---
PT HAD TWO LOOSE SOFT BM. STOOL CULTURE WAS COLLECTED AND SENT TO LAB. PT ALSO URINATED 300 CC LIGHT ROCKY URINE.
--- NOTE | 2017-05-19 13:50 | NUR ---
PT ASKED FOR URINAL AND HE URINATED BRIGHT RED URINE 450CC. URINE WAS STRAINED. WILL CONTINUE TO MONITOR.
[2017-05-19] MEDS: levETIRAcetam 500 MG TAB PO SCH ×2 (14:03→20:18)
--- NOTE | 2017-05-19 14:30 | NUR ---
PT ASKED FOR URINAL. PT URINATED 300CC OF LIGHT ROCKY URINE.
[2017-05-19 15:30] VITALS: BP 110/55
--- NOTE | 2017-05-19 15:47 | NUR ---
PT SHOWS NO S/S OF DISTRESS ON ROOM AIR. PT IS SLEEPING WITH BED LOWERED AND CALL LIGHT WITHIN REACH.
--- NOTE | 2017-05-19 17:07 | NUR ---
PT SHOWS NO S/S OF DISTRESS ON ROOM AIR. PT ASKED FOR URINAL. URINE WAS RED. URINE WAS STRAINED. PT DENIES PAIN BUT STATES HAS BURNING SENSATION WHEN URINATING. DR RAIN. WILL CONTINUE TO MONITOR. THE BED IS LOWERED WITH CALL LIGHT WITHIN REACH.
--- NOTE | 2017-05-19 19:45 | NUR ---
GAVE PT REPORT TO NIGHT NURSE. PT ENDORSED IN STABLE CONDITION.
--- NOTE | 2017-05-19 19:46 | NUR ---
RECEIVED REPORT FROM AM NURSE. PT RESTING IN BED, AOX4, ABLE TO VERBALIZE NEEDS. PT IS LEGALLY BLIND. PT IS BEDREST WITH GENERALIZED WEAKNESS, ESPECIALLY ON BLE. BOTH IV ACCESS ASYMPTOMATIC, PATENT AND INTACT. RIGHT UPPER ARM IV ACCESS IVF INFUSING WELL. LEFT AC IV ACCESS SALINE LOCKED. DISCUSSED PLAN OF CARE WITH PT. PT INSTRUCTED TO REMAIN NPO EXCEPT WHEN TAKING MEDICATIONS. PT VERBALIZED UNDERSTANDING. SAFETY MEASURES ENSURED. CALL LIGHT WITHIN REACH. WILL CONTINUE TO MONITOR.
[2017-05-19 20:00] VITALS: BP 119/75
[2017-05-19] MEDS: VALPROIC ACID 250 MG/5 ML UDC PO SCH (20:17)
[2017-05-19] MEDS: SIMVASTATIN 20 MG TAB PO SCH (20:18)
--- NOTE | 2017-05-19 20:20 | NUR ---
ADMINISTERED DUE MEDICATIONS WITH EDUCATION. PT VERBALIZED UNDERSTANDING. PT TOLERATED WELL. SAFETY MEASURES ENSURED. CALL LIGHT WITHIN REACH.
[2017-05-20] VITALS: BP 103/64
--- NOTE | 2017-05-20 | NUR ---
BEDSIDE CARE PERFORMED WITH INTAKE MAN. PT CLEANED, TURNED AND REPOSITIONED, OFFLOADED PRESSURE AREAS. PT TOLERATED WELL. SAFETY MEASURES ENSURED. CALL LIGHT WITHIN REACH.
[2017-05-20] MEDS: metroNIDAZOLE 500 MG/NS PREMIX 100 ML IV SCH ×3 (04:08→20:43)
[2017-05-20] MEDS: levETIRAcetam 500 MG TAB PO SCH ×3 (04:08→20:43)
--- NOTE | 2017-05-20 04:08 | NUR ---
ADMINISTERED DUE MEDICATIONS WITH EDUCATION. PT VERBALIZED UNDERSTANDING, TOLERATED MEDS WELL. IVPB INFUSING WELL. SAFETY MEASURES ENSURED. CALL LIGHT WITHIN REACH.
[2017-05-20] MEDS: NACL 0.9% 1,000 ML IV SCH ×2 (05:32→17:38)
[2017-05-20 06:07] LABS: BASOPHILS # (AUTO) 0.1 K/uL (0.00-0.22); BASOPHILS % (AUTO) 1.4 % (0.0-2.0); EOSINOPHILS # (AUTO) 0.1 K/uL (0-0.4); EOSINOPHILS % (AUTO) 0.9 % (0.0-4.0); HEMATOCRIT 37.3 % (36-52); HEMOGLOBIN 12.3 g/dL (12.0-18.0); LYMPHOCYTES # (AUTO) 1.1 K/uL (2.0-11.5); LYMPHOCYTES % (AUTO) 14.1 % (20.5-51.1); MEAN CORPUSCULAR HEMOGLOBIN 33 pg (27-31); MEAN CORPUSCULAR HGB CONC 33 g/dL (33-37); MEAN CORPUSCULAR VOLUME 100 fL (80-94); MONOCYTES # (AUTO) 0.7 K/uL (0.8-1.0); MONOCYTES % (AUTO) 9.4 % (1.7-9.3); NEUTROPHILS # (AUTO) 5.9 K/uL (1.8-7.7); NEUTROPHILS % (AUTO) 74.2 % (42.2-75.2); PLATELET COUNT (AUTO) 109 K/uL (140-450); RED BLOOD CELL COUNT(AUTO) 3.72 MIL/uL (4.20-6.10); RED CELL DISTRIBUTION WIDTH 14.4 % (11.6-13.7); WHITE BLOOD COUNT (AUTO) 7.9 K/uL (4.8-10.8)
[2017-05-20 06:20] LABS: CALCIUM 7.7 mg/dL (8.5-10.1)
[2017-05-20 06:38] LABS: ANION GAP 8.2 (8-16); CARBON DIOXIDE 28.4 mmol/L (21-32); POTASSIUM 4.6 mmol/L (3.5-5.1)
--- NOTE | 2017-05-20 07:20 | NUR ---
ASSUMED CONTINUITY OF CARE. NO SIGNS AND SYMPTOMS OF ACUTE DISTRESS NOTED. INITIAL ASSESSMENT DONE. KEEP COMFORTABLE ON BED. FAMILIARIZED WITH SURROUNDINGS. EXPLAINED DIAGNOSIS, PLAN OF CARE, PAIN MANAGEMENT TEACHING, USE OF CALL LIGHT/BED/TV/BATHROOM. VERBALIZED UNDERSTANDING. SEIZURE AND FALL PRECAUTION APPLIED. CALL LIGHT WITHIN REACH.
--- NOTE | 2017-05-20 07:24 | NUR ---
CONDITION STABLE. ENDORSED PLAN OF CARE TO AM NURSE.
[2017-05-20 08:00] VITALS: BP 103/62
[2017-05-20] MEDS: LEVOFLOXACIN 500 MG/D5W PREMIX 100 ML IV SCH (08:26)
[2017-05-20] MEDS: ASPIRIN 81 MG TAB.CHEW PO SCH (08:26)
[2017-05-20] MEDS: TAMSULOSIN 0.4 MG CAP PO SCH (08:26)
[2017-05-20] MEDS: PHENAZOPYRIDINE 100 MG TAB PO SCH ×3 (08:28→18:09)
[2017-05-20] MEDS: LACTOBACILLUS RHAMNOSUS GG 1 EACH CAP PO SCH (08:28)
[2017-05-20] MEDS: ESCITALOPRAM 20 MG TAB PO SCH (08:28)
[2017-05-20] MEDS: VALPROIC ACID 250 MG/5 ML UDC PO SCH ×2 (08:29→20:42)
--- NOTE | 2017-05-20 08:55 | NUR ---
PT CAME FOR PT. PT EVAL AND TREATMENT.
[2017-05-20] MEDS ORDERED: MAG SULF 2000 MG/WATER PREMIX 50 ML IV SCH (09:16)
[2017-05-20] MEDS: CHLORHEXADINE GLUC 2% CLOTH TP SCH (10:52)
--- NOTE | 2017-05-20 11:22 | NUR ---
DR. NICOLE, U CAME, CHECKED PT. CHART AND SEEN PT..
--- NOTE | 2017-05-20 14:07 | NUR ---
05/20/17 RD INITIAL ASSESSMENT COMPLETED PLEASE REFER TO NUTRITION ASSESSMENT UNDER CARE ACTIVITY FOR ESTIMATED NUTRITIONAL NEEDS. 1. WHEN MEDICALLY FEASIBLE INITIATE PO DIET, TO START ON FULL LIQUID DIET AND ADVANCE TOLERATED TO REGULAR DIET 2. RD TO FOLLOW-UP 2-3 DAYS; HIGH RISK CHAN RAMIREZ, GUIDO
[2017-05-20 16:00] VITALS: BP 100/47
--- NOTE | 2017-05-20 17:00 | NUR ---
CALLED PT. CAREGIVER -DIANA ARMANDO AT AND ASKED IF PT. HAD COLONOSCOPY BEFORE PER GRAHAM CORBETT REQUEST. PER DIANA ARMANDO, PT. HAVEN'T DONE COLONOSCOPY SINCE HE TOOK OVER TAKING CARE OF PT. THIS NOVEMBER 2016. INFORMED CHARGE NURSE DARRELL DUNAWAY.
--- NOTE | 2017-05-20 17:20 | NUR ---
CALLED George CORBETT AND INFORMED THAT PER PT. CAREGIVER DIANA ARMANDO PT. HAVEN'T DONE ANY COLONOSCPY SINCE PT. CAREGIVER -DIANA TOOK OVER TAKING CARE OT PT. THIS NOVEMBER 2016. PER George CORBETT, ASKED ATTENDING PHYSICIAN IF THEY WANT TO ORDER COLONOSCOPY. INFORMED CHARGE NURSE DARRELL DUNAWAY.
--- NOTE | 2017-05-20 17:30 | NUR ---
INFORMED DR. CASTELLANOS THAT DR. George NICOLE ASKED IF THEY WANT TO ORDER COLONOSCOPY. DR. CASTELLANOS SAID THAT HE WILL INFORMED DR. STEPHENSON TOMORROW 05/21/27. INFORMED CHARGE NURSE DARRELL DUNAWAY.
[2017-05-20] MEDS ORDERED: BOWEL EVACUANT DRINK 4,000 ML PDS PO SCH (18:45)
--- NOTE | 2017-05-20 18:45 | NUR ---
Patient's Plan of Care was discussed and reviewed with OPEN SOAPER TENDER: GENTRY AN
--- NOTE | 2017-05-20 19:12 | NUR ---
ENDORSED TO PREM DUNAWAY. IN STABLE CONDITION. IVF INFUSING WELL.
--- NOTE | 2017-05-20 19:30 | NUR ---
ASSUMED CARE OF PATIENT. AWAKE, ALERT AND ORIENTED. COMPLAINING OF ABD. PAIN, NOTIFIED FOR PAIN MEDS. CARE BOARD UPDATED. PERICARE DONE BY TAILOR'S AIDE. REPOSITIONED. CALL LIGHT WITHIN REACH.
[2017-05-20] MEDS ORDERED: MORPHINE SULFATE 2 MG/ML SYR IVP PRN (20:00)
--- NOTE | 2017-05-20 20:00 | NUR ---
VITAL SIGNS STABLE. AFEBRILE. PLAN OF CARE DISCUSSED WITH PATIENT, VERBALIZED UNDERSTANDING WELL. CALL LIGHT WITHIN REACH.
[2017-05-20] MEDS: KETOROLAC 30 MG/ML VIAL IVP PRN (20:15)
--- NOTE | 2017-05-20 20:30 | NUR ---
BOWEL PREP STARTED FOR COLONOSCOPY. NPO AFTER MIDNIGHT, SIGN POSTED. CALL LIGHT WITHIN REACH.
[2017-05-20] MEDS: MUPIROCIN 2% OINT 22 GM TUBE TP SCH (20:38)
[2017-05-20] MEDS: SIMVASTATIN 20 MG TAB PO SCH (20:43)
--- NOTE | 2017-05-20 22:30 | NUR ---
CONSENT SIGNED FOR COLONOSCOPY. BOWEL PREP CONTINUED. CALL LIGHT WITHIN REACH. PERICARE DONE, REPOSITIONED.
[2017-05-21 00:34] VITALS: BP_SYST 100; BP_SYST 130; BP_DIAS 57; BP_DIAS 89
--- NOTE | 2017-05-21 00:36 | NUR ---
SLEEPING WELL. EASILY AROUSABLE. NO COMPLAINS. VITAL SIGNS STABLE. AFEBRILE. BM YELLOWISH, CLEAR LIQUID. CALL LIGHT WITHIN REACH.
[2017-05-21] MEDS: KETOROLAC 30 MG/ML VIAL IVP PRN (03:47)
[2017-05-21] MEDS ORDERED: CHLORHEXADINE GLUC 2% CLOTH TP SCH (04:35)
[2017-05-21] MEDS: metroNIDAZOLE 500 MG/NS PREMIX 100 ML IV SCH (05:15)
[2017-05-21] MEDS: NACL 0.9% 1,000 ML IV SCH ×2 (05:15→11:45)
[2017-05-21] MEDS: levETIRAcetam 500 MG TAB PO SCH ×3 (05:16→20:44)
[2017-05-21 06:49] LABS: ANION GAP 8.1 (8-16); CALCIUM 7.9 mg/dL (8.5-10.1); CARBON DIOXIDE 28.8 mmol/L (21-32); POTASSIUM 3.9 mmol/L (3.5-5.1)
[2017-05-21 07:20] LABS: FOLIC ACID 4.2 ng/mL (>3.0)
--- NOTE | 2017-05-21 07:30 | NUR ---
ENDORSED CARE OF PATIENT AT BEDSIDE, STABLE CONDITION WITH CAPITAL RN.
--- NOTE | 2017-05-21 07:30 | NUR ---
RECEIVED ON BED AAO WITH PERIODS OF CONFUSION. NO SOB NOTED. NO C/O PAIN AT THIS TIME. IV TO RT HAND AND LT AC PATENT AND INTACT. CHEST, DIMINISHED AIR ENTRY TO THE BASES,OTHER TORRES CLEAR. ABDOMEN SOFT, BOWEL SOUNDS PRESENT. NO EDEMA NOTED. NPO MAINTAINED FOR PROCEDURE. INSTRUCTED PT TO CALL FOR ASSISTANCE, CALL LIGHT WITHIN REACH. BED ON LOW POSITION, ALARM ON. PT VERBALIZED UNDERSTANDING.
[2017-05-21 08:29] VITALS: BP 97/54
[2017-05-21] MEDS: TAMSULOSIN 0.4 MG CAP PO SCH (08:30)
[2017-05-21] MEDS: LACTOBACILLUS RHAMNOSUS GG 1 EACH CAP PO SCH (09:00)
[2017-05-21] MEDS ORDERED: MUPIROCIN 2% OINT 22 GM TUBE TP SCH (09:00)
[2017-05-21] MEDS: ASPIRIN 81 MG TAB.CHEW PO SCH (09:00)
[2017-05-21] MEDS: PHENAZOPYRIDINE 100 MG TAB PO SCH ×3 (09:00→18:08)
[2017-05-21] MEDS: VALPROIC ACID 250 MG/5 ML UDC PO SCH ×2 (09:00→20:44)
[2017-05-21] MEDS: ESCITALOPRAM 20 MG TAB PO SCH (09:00)
[2017-05-21] MEDS: LEVOFLOXACIN 500 MG/D5W PREMIX 100 ML IV SCH (09:33)
[2017-05-21] MEDS: MUPIROCIN 2% OINT 22 GM TUBE TP SCH ×2 (09:33→20:49)
[2017-05-21] MEDS: CHLORHEXADINE GLUC 2% CLOTH TP SCH (10:00)
--- NOTE | 2017-05-21 10:24 | NUR ---
PT NOTES CHART REVIEWED AND CLEARED FOR PT BY RN. PATIENT IN SEMIFOWLER POSITION RESTING WITH RN AT BEDSIDE. PATIENT DENIES PAIN AT THIS TIME, BUT DECLINES PARTICIPATION IN THERAPY STATING, "I DIDN'T SLEEP WELL LAST NIGHT, I'M TIRED AND I'M GOING TO HAVE A PROCEDURE LATER TODAY" PER PATIENT. ENCOURAGED CONTINUED PARTICIPATION IN HEP WHEN RESTED AND DAILY, VERBALIZED UNDERSTANDING. TRAY AND CALL LIGHT IN REACH. RN AT BEDSIDE. RETURNED 2ND TIME TO ATTEMPT POSSIBLE PARTICIPATION IN THERAPY. PATIENT CONTINUES TO DECLINE PARTICIPATION IN THERAPY FOR SAME REASONS OF WANTING TO REST. ENCOURAGED CONTINUED PARTICIPATION IN BED EXERCISES AND CALLING FOR ASSISTANCE FROM NURSING WHEN WANTING TO GET OOB TO CHAIR OR ANY OTHER NEEDS, VERBALIZED UNDERSTANDING. TRAY AND CALL LIGHT IN REACH. RN AWARE, WILL FOLLOW UP PATIENT TOMORROW IF POSSIBLE. PVEx2 Addendum: 05/21/17 at 1523 by Nalini Cartagena PT PHYSICAL THERAPY CO-SIGN The Physical Therapy Progress Notes documented by Instructor Nurse have been reviewed. Reviewed/Co-Signed by: Nalini Cartagena PT Documentation Done by:QUINTON ANSARI GROUNDS MANAGER WILL BENEFIT W/ P.T.; 05/21/17 COLONOSCOPY; Pt STATES HE WILL GET UP W/ P.T. STAFF TOMORROW; CALL BECERRA, PHONE, TABLE IN REACH; APPRECIATIVE; CONTACT ISOL PREC OBSERVED.
[2017-05-21] MEDS ORDERED: MIDAZOLAM 2 MG/2 ML VIAL ONE ×2 (12:20)
[2017-05-21] MEDS ORDERED: fentaNYL 0.05 MG/ML VIAL ONE (12:20)
[2017-05-21] MEDS ORDERED: diphenhydrAMINE 50 MG/ML VIAL ONE (12:21)
--- NOTE | 2017-05-21 12:30 | NUR ---
PT WHEELED TO SURGERY IN STABLE CONDITION BY RASHEED. NO COMPLAINTS MADE AT THIS TIME.
[2017-05-21 14:30] VITALS: BP 91/54
--- NOTE | 2017-05-21 14:30 | NUR ---
PT RETURNED FROM COLONOSCOPY IN STABLE CONDITION. PT AAO, NO SOB NOTED. NO C/O AT THIS TIME. VITAL SIGNS STABLE. WILL CONTINUE TO MONITOR.
[2017-05-21] MEDS ORDERED: fentaNYL 0.05 MG/ML VIAL IVP ONE (14:45)
[2017-05-21] MEDS ORDERED: MIDAZOLAM 2 MG/2 ML VIAL IVP ONE (14:45)
[2017-05-21 15:00] VITALS: BP 98/55
--- NOTE | 2017-05-21 16:55 | NUR ---
PT ATE EARLY DINNER, CONSUMED 100% OF FOOD SERVED. FOOD TOLERATED WELL. NO N&V NOTED.
--- NOTE | 2017-05-21 18:52 | NUR ---
PT AWAKE, NO SOB NOTED. NO COMPLAINTS MADE. WILL ENDORSE TO NEXT SHIFT NURSE FOR CONTINUITY OF CARE.
[2017-05-21] MEDS: SIMVASTATIN 20 MG TAB PO SCH (20:44)
--- NOTE | 2017-05-21 20:50 | NUR ---
DUE MEDICATIONS ADMINISTERED WITH EDUCATION PROVIDED, REPOSITION Q2H AND OFFLOAD PRESSURE AREAS, ALL NEEDS ATTENDED.
--- NOTE | 2017-05-21 21:40 | NUR ---
PT STILL HAVING WATERY STOOL MODERATE AMOUNT, PERINEAL CARE DONE, KEPT SKIN CLEAN AND DRY, MONITORED CLOSELY.
[2017-05-22] VITALS: BP 91/52
--- NOTE | 2017-05-22 | NUR ---
PT SLEEPING, EASILY AROUSABLE, VITAL SIGNS TAKEN, BP LOW BUT STABLE, DENIES ANY PAIN, REPOSITION TO RT SIDE, CONTINUE TO MONITOR CLOSELY.
--- NOTE | 2017-05-22 02:00 | NUR ---
PT REFUSED TO BE REPOSITIONED, PREFER TO BE OF HIS RIGHT SIDE, RISK AND BENEFITS EXPLAINED BUT STILL REFUSED TO BE REPOSITIONED AT THIS TIME.
[2017-05-22] MEDS: levETIRAcetam 500 MG TAB PO SCH ×2 (04:56→12:04)
--- NOTE | 2017-05-22 05:00 | NUR ---
PT HAS LOOSE STOOL, PERINEAL CARE DONE, REPOSITIONED AND OFFLOAD PRESSURE AREAS, DUE PO MEDICATION GIVEN.
--- NOTE | 2017-05-22 06:00 | NUR ---
PT SLEEPING, EASILY AROUSABLE, NO SIGNS OF DISTRESS, NO SEIZURE EPISODE THE WHOLE SHIFT, FOR FURTHER CARE.
--- NOTE | 2017-05-22 07:27 | NUR ---
RECEIVED CARE OF PT FROM BEDSIDE FROM ROCK CONTRACTOR NURSE. UPDATED THE BOARD AND INTRODUCED MYSELF. PT IS A&OX3. PT HAS IV ON R UPPER ARM G 20 TKO AND L AC G 22 SL. NO PAIN OR OTHER COMPLAINTS AT THIS TIME. PT IS LEGALLY BLIND, WILL ASSIST WITH ACTIVITIES. CALL LIGHT WITHIN REACH. WILL CONTINUE TO MONITOR.
[2017-05-22] MEDS ORDERED: LOPERAMIDE 2 MG CAP PO PRN (07:35)
[2017-05-22 08:00] VITALS: BP 100/55
[2017-05-22] MEDS ORDERED: METPCK PO (08:04)
[2017-05-22] MEDS ORDERED: IMO2 PO (08:04)
[2017-05-22] MEDS ORDERED: PSYL0.4C2 PO (08:09)
[2017-05-22] MEDS ORDERED: PSYLLIUM 12.2 GM/PKT PO SCH (09:00)
[2017-05-22] MEDS: LACTULOSE 20 GM/30 ML UDC PO SCH ×2 (09:00→09:19)
[2017-05-22] MEDS: ESCITALOPRAM 20 MG TAB PO SCH (09:19)
[2017-05-22] MEDS: VALPROIC ACID 250 MG/5 ML UDC PO SCH (09:19)
[2017-05-22] MEDS: TAMSULOSIN 0.4 MG CAP PO SCH (09:19)
[2017-05-22] MEDS: ASPIRIN 81 MG TAB.CHEW PO SCH (09:19)
[2017-05-22] MEDS: LACTOBACILLUS RHAMNOSUS GG 1 EACH CAP PO SCH (09:19)
[2017-05-22] MEDS: MUPIROCIN 2% OINT 22 GM TUBE TP SCH (09:20)
--- NOTE | 2017-05-22 09:30 | NUR ---
PT REFUSED PHYSICAL THERAPY. PHYSICAL THERAPY WILL COME BACK AT A LATER TIME.
[2017-05-22] MEDS ORDERED: TAMS0.4C96 PO (10:23)
[2017-05-22] MEDS: CHLORHEXADINE GLUC 2% CLOTH TP SCH (10:23)
[2017-05-22] MEDS ORDERED: CHLO118S2 TP (10:23)
[2017-05-22] MEDS ORDERED: BACTO TP (10:23)
--- NOTE | 2017-05-22 10:30 | NUR ---
AMBULATED IN HALLWAY WITH PT. TOLERATED WELL. BACK TO BED. CALL LIGHT WITHIN REACH. WILL CONTINUE TO MONITOR.
--- NOTE | 2017-05-22 10:35 | NUR ---
SS NOTE: DEBBIE MOYA FROM [facility] ([phone]), PT IS ALREADY ON SERVICE WITH THEM AND THEY WILL RESUME SERVICES. SHE ALSO STATED THAT A NURSE WILL COME TO SEE PT TOMORROW OR THURSDAY AT HOME.
--- NOTE | 2017-05-22 11:53 | NUR ---
SPOKE TO DIANA ARMANDO, CAREGIVER, INFORMED HIM PT WILL BE D/C TODAY. DIANA VERBALIZED UNDERSTANDING AND WILL GAME PRODUCER PT.
[2017-05-22] MEDS ORDERED: LACT10SO11 PO (12:00)
[2017-05-22 12:21] VITALS: BP 100/55
--- NOTE | 2017-05-22 13:00 | NUR ---
HELPED PT USE URINAL. TOLERATED WELL. CALL LIGHT WITHIN REACH. WILL CONTINUE TO MONITOR.
--- NOTE | 2017-05-22 14:55 | NUR ---
WENT OVER PAPERWORK WITH PT AND CAREGIVER DIANA. PT SIGNED ALL APPROPRIATE PAPERS AND VERBALIZED UNDERSTANDING. IV BOTH REMOVED CANNULA INTACT. ALL BANDS CUT OFF. WILL WHEEL PT OUT.
--- NOTE | 2017-05-22 15:00 | NUR ---
WHEELED PT OUT. PT TOOK ALL BELONGINGS. ACCOMPANIED BY CAREGIVER DIANA ARMANDO. PT IN STABLE CONDITION.
== END 2017-05-22 15:00 | DRG 100 ==
LOC: MED 09:13 → MTU 10:55
PROVIDERS: ADMIT Family Medicine; ATTEND Family Medicine
PROC: 0DJD8ZZ Inspection of Lower Intestinal Tract, Via Natural or Artificial Opening Endoscopic (ICD-10-PCS; principal; 2017-05-21 12:30)
DX: G40.909 Epilepsy, unspecified, not intractable, without status epilepticus (principal); E43 Unspecified severe protein-calorie malnutrition; J98.11 Atelectasis; Z68.1 Body mass index [BMI] 19.9 or less, adult; K52.9 Noninfective gastroenteritis and colitis, unspecified; E86.0 Dehydration; M94.0 Chondrocostal junction syndrome [Tietze]; G90.9 Disorder of the autonomic nervous system, unspecified; E87.6 Hypokalemia; E83.42 Hypomagnesemia; F32.9 Major depressive disorder, single episode, unspecified; D64.9 Anemia, unspecified; F70 Mild intellectual disabilities; N20.0 Calculus of kidney; F41.9 Anxiety disorder, unspecified; H54.8 Legal blindness, as defined in USA; Z60.2 Problems related to living alone; K57.30 Diverticulosis of large intestine without perforation or abscess without bleeding; Z53.29 Procedure and treatment not carried out because of patient's decision for other reasons; R00.1 Bradycardia, unspecified; E83.51 Hypocalcemia; Z22.322 Carrier or suspected carrier of Methicillin resistant Staphylococcus aureus; Z79.2 Long term (current) use of antibiotics; Z79.899 Other long term (current) drug therapy; Z90.49 Acquired absence of other specified parts of digestive tract; Z87.891 Personal history of nicotine dependence; Z90.5 Acquired absence of kidney; Z71.3 Dietary counseling and surveillance
CPT/HCPCS: 36415; 70450; 71010; 76604; 80048; 80053; 80173; 80305; 81001; 82140; 82330; 82550; 82553; 82607; 82728; 82746; 83540; 83605; 83735; 83874; 83880; 84100; 84484; 85025; 85045; 85610; 85730; 87040; 87045; 87070; 87081; 87086; 93005; 93880; 96374; 96375; 97110; 97116; 97140; 97530; 99285; G0482; J0696; J1200; J1885; J1956; J2250; J2405; J3010; J3475; J3490; J7030; J7060; Q0092; Q9967

== ENCOUNTER 2017-07-10 13:45 | Emergency (ER) | payer MEDICAID, OTHER ==
[~2017-07-10] VITALS: Ht 182.9 cm; Wt 59.0 kg
[~2017-07-10 13:45] MED LIST changes: +BACTO TP; +CHLO118S2 TP; -CLIN300C15 PO; +IMO2 PO; +LACT10SO11 PO; -LEVO500T22 PO; -MAG400 PO; -PHOS1PDR4 PO; -POTA10TA10 PO; +PSYL0.4C2 PO; +TAMS0.4C96 PO
[2017-07-10 14:06] VITALS: BP 129/54
--- NOTE | 2017-07-10 17:00 | NUR ---
PATIENT AMBULATED TO ER BED 4.
--- NOTE | 2017-07-10 17:15 | NUR ---
PATIENT BEING EVALUATED BY DR. CORONA.
--- NOTE | 2017-07-10 17:30 | NUR ---
62 M BIB CAREGIVER C/O S/P FALL WITH 1 1/2 INCH LACERATION BACK OF HEAD; BLEEDING CONTROLLED;PT STATED HE WAS WALING AND "FELT MYSELF GOING BACK"; PT DENIES ANY LOC; ABRASION ON LEFT HAND 4TH AND 5TH KNUCKLES; DENIES N/V/D; SKIN IS PINK/WARM/DRY; ACCORDING TO CAREGIVER, PT IS AT NEURO BASELINE; PT IS A&OX4; LUNGS CLEAR BL; HR EVEN AND REGULAR; PT DENIES ANY FEVER, CP, SOB, OR COUGH AT THIS TIME; PATIENT STATES PAIN OF 0/10 AT THIS TIME; VSS; PATIENT POSITIONED FOR COMFORT; HOB ELEVATED; BEDRAILS UP X2; BED DOWN; ALL NEEDS MET AT THIS TIME; WILL CONTINUE TO MONITOR
[2017-07-10] MEDS ORDERED: LIDOCAINE 1% 500 MG/50 ML VIAL INJ SCH (17:35)
[2017-07-10] MEDS ORDERED: LIDOCAINE 1% 500 MG/50 ML VIAL INJ ONE (17:50)
[2017-07-10] MEDS ORDERED: BACITRACIN OINT 500 UNITS/GM PKT TP ONE ×2 (17:55→18:44)
--- NOTE | 2017-07-10 18:30 | NUR ---
ER MD CORONA BY BEDSIDE DOING PROCEDURE; PT TOLERATED WELL
--- NOTE | 2017-07-10 18:49 | NUR ---
Patient discharged with v/s stable. Written and verbal after care instructions given and explained. Patient verbalized understanding. Ambulatory with steady gait. All questions addressed prior to discharge. Advised to follow up with PMD.
[2017-07-10 18:50] VITALS: BP 101/65
== END 2017-07-10 18:49 | disposition home or self-care (01) ==
LOC: MED 13:59
DX: S01.01XA Laceration without foreign body of scalp, initial encounter (principal); S61.402A Unspecified open wound of left hand, initial encounter; W01.0XXA Fall on same level from slipping, tripping and stumbling without subsequent striking against object, initial encounter; Y93.89 Activity, other specified; Y92.89 Other specified places as the place of occurrence of the external cause; Y99.8 Other external cause status; J45.909 Unspecified asthma, uncomplicated
CPT/HCPCS: 12002; 70450; 81002; 90471; 90715; 99284; J2001

== ENCOUNTER 2017-07-21 19:18 | Emergency (ER) | payer OTHER, MEDICAID ==
[~2017-07-21] VITALS: Ht 182.9 cm; Wt 60.3 kg
[2017-07-21 20:08] VITALS: BP 95/55
--- NOTE | 2017-07-21 21:03 | NUR ---
PT TAKEN TO OF2
[2017-07-21 21:18] VITALS: BP 100/66
--- NOTE | 2017-07-21 21:21 | NUR ---
Dr. Yanez evaluating patient
== END 2017-07-21 21:29 | disposition home or self-care (01) ==
LOC: MED 19:18
DX: S01.01XD Laceration without foreign body of scalp, subsequent encounter (principal); J45.909 Unspecified asthma, uncomplicated; Z79.899 Other long term (current) drug therapy; Z88.2 Allergy status to sulfonamides; W19.XXXD Unspecified fall, subsequent encounter
CPT/HCPCS: 99281

== ENCOUNTER 2017-08-11 10:59 | Inpatient (IN) | payer OTHER, MEDICAID ==
[~2017-08-11] VITALS: Ht 182.9 cm; Wt 62.7 kg
[2017-08-11 11:32] VITALS: BP 73/60
--- NOTE | 2017-08-11 11:37 | NUR ---
Patient taken to bed 07 via wheelchair per EMT.
--- NOTE | 2017-08-11 11:46 | NUR ---
PT BIB CAREGIVER FOR EVALUATION OF GEN WEAKNESS X2 DAYS. HX SEIZURE DISORDER, BLINDNESS, DEPRESSION, COPD. DENIES N/V/D; SKIN IS PINK/WARM/DRY; AAOX4; LUNGS CLEAR BL; HR EVEN AND REGULAR; PT DENIES ANY FEVER, CP, SOB, OR COUGH AT THIS TIME; PATIENT STATES PAIN OF 0/10 AT THIS TIME; VSS; PATIENT POSITIONED FOR COMFORT; HOB ELEVATED; BEDRAILS UP X2; BED DOWN. ER MD MADE AWARE OF PT STATUS.
--- NOTE | 2017-08-11 13:10 | NUR ---
PT RESTING COMFORTABLY ON BED WITH CAREGIVER AT BEDSIDE, NO ACUTE DISTRESS NOTED AT THIS TIME, WILL CONTINUE TO MONITOR
--- NOTE | 2017-08-11 13:16 | NUR ---
DR CORONA EVALUTING PT WITH MANAGER HELPDESK AT BEDSIDE
[2017-08-11] MEDS ORDERED: NACL 0.9% 1,000 ML IV ONE ×2 (13:20→14:50)
[2017-08-11 14:01] LABS: HEMOGLOBIN 11.3 g/dL (12.0-18.0); MEAN CORPUSCULAR HEMOGLOBIN 33 pg (27-31); MEAN CORPUSCULAR HGB CONC 32 g/dL (33-37); MEAN CORPUSCULAR VOLUME 103 fL (80-94); PLATELET COUNT (AUTO) 88 K/uL (140-450); WHITE BLOOD COUNT (AUTO) 9.8 K/uL (4.8-10.8)
--- NOTE | 2017-08-11 14:02 | NUR ---
XRAY at bedside.
[2017-08-11 14:14] LABS: PROTHROMBIN TIME 13.2 secs (10.8-13.4)
[2017-08-11 14:15] LABS: LYMPHOCYTES % (MANUAL) 13 % (20-46)
[2017-08-11 14:16] LABS: EOSINOPHILS % (MANUAL) 2 % (0-4); MONOCYTES % (MANUAL) 9 % (5-12)
[2017-08-11 14:19] LABS: ANION GAP 10.6 (8-16); CARBON DIOXIDE 29.2 mmol/L (21-32); CREATININE 1.1 mg/dL (0.7-1.3); POTASSIUM 3.8 mmol/L (3.5-5.1)
[2017-08-11 14:25] LABS: ALBUMIN 2.2 g/dL (3.4-5.0); TOTAL BILIRUBIN 0.6 mg/dL (0.0-1.0)
[2017-08-11 14:28] LABS: AMYLASE 50 U/L (25-115); LIPASE 51 U/L (73-393)
[2017-08-11] MEDS ORDERED: PIPERACILLIN/TAZOBACTAM 3.375 GM in DEXTROSE 5% 50 ML IV ONE (14:50)
[2017-08-11] MEDS ORDERED: VANCOMYCIN 1,000 MG in DEXTROSE 5% 250 ML IV ONE (14:50)
[2017-08-11] MEDS ORDERED: HYDROcodone/APAP 7.5/325 MG 1 TAB PO PRN (15:15)
[2017-08-11] MEDS: NACL 0.9% 1,000 ML IV SCH ×2 (15:15→22:05)
[2017-08-11] MEDS ORDERED: MORPHINE SULFATE 2 MG/ML SYR IVP PRN (15:15)
[2017-08-11] MEDS ORDERED: ACETAMINOPHEN 325 MG TAB PO PRN (15:15)
[2017-08-11] MEDS ORDERED: ONDANSETRON 4 MG/2 ML VIAL IM/IVP PRN (15:15)
[2017-08-11] MEDS ORDERED: DOCUSATE SODIUM 100 MG GELCAP PO PRN (15:15)
[2017-08-11] MEDS ORDERED: PIPERACILLIN/TAZOBACTAM 3.375 GM VIAL IV ONE (15:23)
[2017-08-11] MEDS ORDERED: VANCOMYCIN 1,000 MG VIAL ONE (15:23)
--- NOTE | 2017-08-11 15:58 | NUR ---
Patient will be admitted to care of DR CRUZ. Admited to TELE. Will go to room 117. Belongings list completed. Report to RIANA LOPEZ.
[2017-08-11 16:10] LABS: CHOL/HDL RATIO 2.2 (1-4.5); FREE T4 (FREE THYROXINE) 0.95 ng/dL (0.76-1.46); MAGNESIUM 1.6 mg/dL (1.8-2.4); PHOSPHORUS 2.3 mg/dL (2.5-4.9); THYROID STIMULATING HORMONE 0.84 uIU/mL (0.34-3.74)
[2017-08-11 16:31] LABS: APPEARANCE,URINE HAZY (CLEAR); BILIRUBIN,URINE NEGATIVE (NEGATIVE); BLOOD, URINE 2+ (NEGATIVE); COLOR,URINE ORANGE (YELLOW); LEUKOCYTE ESTERASE ,URINE NEGATIVE (NEGATIVE); NITRITE, URINE NEGATIVE (NEGATIVE); UGLUCOSE NEGATIVE (NEGATIVE)
[2017-08-11 16:40] LABS: RBC,URINE 3-10 (FEW) /HPF (0-5); WBC,URINE 0-5 (RARE) /HPF (0-5)
[2017-08-11 17:00] VITALS: BP 102/61
[2017-08-11] MEDS ORDERED: LOPERAMIDE 2 MG CAP PO PRN (17:00)
[2017-08-11] MEDS ORDERED: CHLORHEXADINE GLUC 2% CLOTH TP SCH (17:00)
--- NOTE | 2017-08-11 17:00 | NUR ---
PATIENT ADMITTED TO THE UNIT FROM ER. PATIENT IS BLIND ON BOTH EYES. PATIENT AWAKE, ALERT, AND ORIENTED. NO S/S OF DISTRESS NOTED. PATIENT ON ROOM AIR. PATIENT DENIES PAIN. WOUND DRESSING NOTED TO THE RIGHT ARM. DRESSING CLEAN, DRY AND INTACT. PATIENT ON TELE MONITORING. BED LOWERED WITH CALL LIGHT WITHIN REACH. WILL CONTINUE TO MONITOR
[2017-08-11] MEDS ORDERED: LORazepam 2 MG/ML VIAL IM/IVP PRN (18:35)
[2017-08-11] MEDS ORDERED: MAG SULF 2000 MG/WATER PREMIX 50 ML IV SCH (18:35)
[2017-08-11] MEDS ORDERED: SODIUM PHOS / POTASSIUM PHOS 1 PKT PDR PO SCH (18:35)
--- NOTE | 2017-08-11 19:15 | NUR ---
RECEIVED REPORT FROM AM NURSE. PT IS AWAKE AND ALERT, ORIENTED X4. SHOWING NO SIGN SOF ACUTE DISTRESS. PT IS LEGALLY BLIND. URINAL AT THE BEDSIDE. ON ROOM AIR. IV ACCESS ASYMPTOMATIC AND PATENT. PLAN OF CARE DISCUSSED, PT VERBALIZED UNDERSTANDING. BED ON LOW POSITION, BILATERAL HALF SIDE RAILS UP, CALL LIGHT WITH IN REACH, WILL CONTINUE TO MONITOR
[2017-08-11 20:00] VITALS: BP 123/67
[2017-08-11] MEDS ORDERED: MUPIROCIN 2% OINT 22 GM TUBE TP SCH (21:00)
[2017-08-11] MEDS: levETIRAcetam 500 MG TAB PO SCH (21:46)
[2017-08-11] MEDS: PIPER/TAZO 3.375GM/D5W PREMIX 50 ML IV SCH (21:46)
[2017-08-12] VITALS: BP 110/70
--- NOTE | 2017-08-12 02:05 | NUR ---
PT SLEEPING. SHOWING NO SIGNS OF ACUTE DISTRESS, BED ON LOW POSITION, BILATERAL HALF SIDE RAILS UP, CALL LIGHT WITHIN REACH. WILL CONTINUE TO MONITOR
[2017-08-12 04:00] VITALS: BP 111/67
[2017-08-12] MEDS: PIPER/TAZO 3.375GM/D5W PREMIX 50 ML IV SCH ×3 (05:07→20:44)
[2017-08-12] MEDS: levETIRAcetam 500 MG TAB PO SCH ×3 (05:08→20:44)
[2017-08-12 06:15] LABS: T4 (THYROXINE) 4.7 ug/dL (4.5-12.0)
--- NOTE | 2017-08-12 06:20 | NUR ---
PT TAKEN TO RADIOLOGY VIA WHEELCHAIR FOR CT OF HEAD.
[2017-08-12 06:35] LABS: BASOPHILS # (AUTO) 0.2 K/uL (0.00-0.22); EOSINOPHILS % (AUTO) 0.1 % (0.0-4.0); HEMATOCRIT 33.3 % (36-52); HEMOGLOBIN 10.8 g/dL (12.0-18.0); LYMPHOCYTES # (AUTO) 1.5 K/uL (2.0-11.5); LYMPHOCYTES % (AUTO) 19.2 % (20.5-51.1); MEAN CORPUSCULAR HEMOGLOBIN 34 pg (27-31); MEAN CORPUSCULAR HGB CONC 33 g/dL (33-37); MEAN CORPUSCULAR VOLUME 103 fL (80-94); MONOCYTES # (AUTO) 0.9 K/uL (0.8-1.0); MONOCYTES % (AUTO) 10.8 % (1.7-9.3); NEUTROPHILS # (AUTO) 5.4 K/uL (1.8-7.7); NEUTROPHILS % (AUTO) 67.9 % (42.2-75.2); PLATELET COUNT (AUTO) 79 K/uL (140-450); RED BLOOD CELL COUNT(AUTO) 3.22 MIL/uL (4.20-6.10); RED CELL DISTRIBUTION WIDTH 15.1 % (11.6-13.7)
[2017-08-12 06:39] LABS: CARBON DIOXIDE 30.6 mmol/L (21-32); CREATININE 0.9 mg/dL (0.7-1.3); POTASSIUM 3.6 mmol/L (3.5-5.1)
[2017-08-12 07:25] LABS: MAGNESIUM 2.2 mg/dL (1.8-2.4); PHOSPHORUS 2.4 mg/dL (2.5-4.9)
--- NOTE | 2017-08-12 07:35 | NUR ---
RECEIVED REPORT FROM HANDS PARTER NURSE, PT IS RESTING IN BED SEMI FOWLERS POSITION, PT IS A/OX4, AMBULATES WITH ASSIST, PT IS BLIND, BOTH EYES, PT HAS IV ON HIS LT AC, PATENT, INTACT, FLUSHING WELL, PT HAS RIGHT HAND DISCOLORATION, BILATERAL LOWER EXT. NON PITTING EDEMA, NO S/S OF RESPIRATORY DISTRESS OR DISCOMFORT NOTED, DISCUSSED PLAN OF CARE WITH PT, PT VERBALIZED UNDERSTANDING, SAFETY/FALL/SEIZURE PRECAUTIONS ARE IN PLACE, CALL LIGHT IS WITHIN REACH, WILL CONTINUE TO MONITOR.
[2017-08-12] MEDS ORDERED: ALBUTEROL 0.083% 2.5 MG/3 ML NEBU INH PRN (07:40)
[2017-08-12] MEDS ORDERED: IPRATROPIUM 0.02% 0.5 MG/2.5 ML NEBU INH PRN (07:40)
[2017-08-12 08:00] VITALS: BP 108/68
[2017-08-12] MEDS: LACTOBACILLUS RHAMNOSUS GG 1 EACH CAP PO SCH (09:08)
[2017-08-12] MEDS: ESCITALOPRAM 20 MG TAB PO SCH (09:08)
[2017-08-12 09:10] LABS: FOLIC ACID 6.3 ng/mL (>3.0)
--- NOTE | 2017-08-12 10:01 | NUR ---
PATIENT HAS BEEN SCREENED AND CATEGORIZED HIGH NUTRITION RISK. PATIENT WILL BE SEEN WITHIN 1-2 DAYS OF ADMISSION. 08/12/17-08/13/[address]
--- NOTE | 2017-08-12 11:25 | NUR ---
PT OFF UNIT TO HAVE CT SCAN DONE.
[2017-08-12 12:00] VITALS: BP 104/57
--- NOTE | 2017-08-12 12:00 | NUR ---
PT RETURNED TO UNIT FROM RADIOLOGY, PT STABLE, CALL LIGHT WITHIN REACH.
[2017-08-12] MEDS: ALBUTEROL 0.083% 2.5 MG/3 ML NEBU INH SCH ×2 (12:46→19:16)
[2017-08-12] MEDS: IPRATROPIUM 0.02% 0.5 MG/2.5 ML NEBU INH SCH ×2 (12:46→19:16)
--- NOTE | 2017-08-12 14:30 | NUR ---
PT SLEEPING IN BED, CALL LIGHT IS WITHIN REACH.
[2017-08-12 16:00] VITALS: BP 111/58
[2017-08-12] MEDS: NACL 0.9% 1,000 ML IV SCH (17:25)
--- NOTE | 2017-08-12 18:00 | NUR ---
PT IS RESTING IN BED, NO S/S OF RESPIRATORY DISTRESS OR DISCOMFORT NOTED, CALL LIGHT WITHIN REACH.
--- NOTE | 2017-08-12 19:25 | NUR ---
ENDORSED PT TO EMERGENCY MANAGEMENT SYSTEM DIRECTOR NURSE FOR CONTINUITY OF CARE. PT STABLE AT THIS TIME.
--- NOTE | 2017-08-12 19:26 | NUR ---
RECEIVED REPORT AT PT BEDSIDE. PT IN STABLE CONDITION. PT IS AAOX4, ON ROOM AIR WITH NO SIGNS OF RESPIRATORY DISTRESS. PT IS LEGALLY BLIND. PT HAS BILATERAL HAND DISCOLORATION, AND AN ABRASION ON RIGHT ARM, COVERED, INTACT WITH NO DRAINAGE VISIBLE. PT HAS A 20 GAUGE IV ON HIS LEFT AC INFUSING NS @ 60ML/HR. RESTRICTED SIDE SIGNS POSTED IN ROOM. NO SIGNS OF DISTRESS NOTED. BED IN LOW POSITION, CALL LIGHT WITHIN REACH. WILL CONTINUE TO MONITOR.
[2017-08-12 20:08] VITALS: BP 98/49
--- NOTE | 2017-08-12 21:00 | NUR ---
SCHEDULED MEDICATIONS ADMINISTERED. PT TOLERATED WELL. PT IN STABLE CONDITION, NO SIGNS OF DISTRESS WANTED. BED IN LOW POSITION, CALL LIGHT WITHIN REACH. WILL CONTINUE TO MONITOR.
--- NOTE | 2017-08-12 23:20 | NUR ---
PT IN STABLE CONDITION, NO SIGNS OF DISTRESS NOTED. VITALS SIGNS ARE WITHIN NORMAL LIMITS. BED IN LOW POSITION, CALL LIGHT WITHIN REACH. WILL CONTINUE TO MONITOR.
[2017-08-13] VITALS: BP 103/73
[2017-08-13] MEDS: ALBUTEROL 0.083% 2.5 MG/3 ML NEBU INH SCH ×4 (01:21→18:59)
[2017-08-13] MEDS: IPRATROPIUM 0.02% 0.5 MG/2.5 ML NEBU INH SCH ×4 (01:21→18:59)
--- NOTE | 2017-08-13 01:25 | NUR ---
PT C/O BEING COLD. ADDED EXTRA SHEET, AND HELPED PT USE THE URINAL. BED IN LOW POSITION, CALL LIGHT WITHIN REACH. WILL CONTINUE TO MONITOR.
--- NOTE | 2017-08-13 03:35 | NUR ---
PT IN STABLE CONDITION, NO SIGNS OF DISTRESS NOTED. VITALS SIGNS ARE WITHIN NORMAL LIMITS. PT SLEEPING. BED IN LOW POSITION, CALL LIGHT WITHIN REACH. WILL CONTINUE TO MONITOR.
[2017-08-13 04:00] VITALS: BP 115/61
[2017-08-13] MEDS: PIPER/TAZO 3.375GM/D5W PREMIX 50 ML IV SCH ×3 (05:21→20:45)
[2017-08-13] MEDS: NACL 0.9% 1,000 ML IV SCH ×2 (05:22→18:03)
[2017-08-13] MEDS: levETIRAcetam 500 MG TAB PO SCH ×3 (05:22→20:45)
--- NOTE | 2017-08-13 05:24 | NUR ---
ADMINISTERED SCHEDULED MEDICATIONS. PT TOLERATED WELL. PT IN STABLE CONDITION, NO SIGNS OF DISTRESS NOTED. BED IN LOW POSITION, CALL LIGHT WITHIN REACH. WILL CONTINUE TO MONITOR.
[2017-08-13 05:54] LABS: BASOPHILS # (AUTO) 0.2 K/uL (0.00-0.22); BASOPHILS % (AUTO) 3.8 % (0.0-2.0); EOSINOPHILS % (AUTO) 0.6 % (0.0-4.0); HEMOGLOBIN 11.4 g/dL (12.0-18.0); LYMPHOCYTES # (AUTO) 1.2 K/uL (2.0-11.5); LYMPHOCYTES % (AUTO) 21.1 % (20.5-51.1); MEAN CORPUSCULAR HEMOGLOBIN 34 pg (27-31); MEAN CORPUSCULAR HGB CONC 33 g/dL (33-37); MEAN CORPUSCULAR VOLUME 103 fL (80-94); MONOCYTES # (AUTO) 0.9 K/uL (0.8-1.0); MONOCYTES % (AUTO) 14.7 % (1.7-9.3); NEUTROPHILS # (AUTO) 3.6 K/uL (1.8-7.7); NEUTROPHILS % (AUTO) 59.8 % (42.2-75.2); PLATELET COUNT (AUTO) 87 K/uL (140-450); RED BLOOD CELL COUNT(AUTO) 3.41 MIL/uL (4.20-6.10); RED CELL DISTRIBUTION WIDTH 14.9 % (11.6-13.7); WHITE BLOOD COUNT (AUTO) 5.9 K/uL (4.8-10.8)
[2017-08-13 06:44] LABS: MAGNESIUM 1.8 mg/dL (1.8-2.4); PHOSPHORUS 2.6 mg/dL (2.5-4.9)
[2017-08-13 07:06] LABS: ANION GAP 8.2 (8-16); CARBON DIOXIDE 29.7 mmol/L (21-32); CREATININE 0.9 mg/dL (0.7-1.3); POTASSIUM 3.9 mmol/L (3.5-5.1)
--- NOTE | 2017-08-13 07:20 | NUR ---
ENDORSED PT TO DAY SHIFT RN FOR CONTINUITY OF CARE. PT IN STABLE CONDITION.
--- NOTE | 2017-08-13 07:21 | NUR ---
RECEIVED REPORT FROM NIGHT NURSE AT PT BEDSIDE. PATIENT IS ALERT AND ORIENTED. LEGALLY BLIND ABLE TO SEE SHAPES AND MOVEMENT. PATIENT DENIES DISCOMFORT. NO S/S OF RESPIRATORY DISTRESS NOTED. PATIENT ON BED REST. NOTED TO HAVING SHAKINESS R/T PARKINSONS DISEASE. IV SITE PATENT AND INTACT. CALL LIGHT WITHIN REACH. RIGHT ARM WOUND DRESSING CLEAN DRY AND INTACT.
[2017-08-13 08:00] VITALS: BP 94/49
[2017-08-13] MEDS: TAMSULOSIN 0.4 MG CAP PO SCH (08:31)
[2017-08-13] MEDS: ESCITALOPRAM 20 MG TAB PO SCH (08:31)
[2017-08-13] MEDS: LACTOBACILLUS RHAMNOSUS GG 1 EACH CAP PO SCH (08:32)
--- NOTE | 2017-08-13 09:20 | NUR ---
PATIENT TOLERATED BREAKFAST. NO S/S OF ACUTE DISTRESS. ASSISTED IN CHANGING OF POSITIONS. LINENS CLEANED AND DRY.
--- NOTE | 2017-08-13 10:25 | NUR ---
08/13/17 RD INITIAL ASSESSMENT COMPLETED PLEASE REFER TO NUTRITION ASSESSMENT UNDER CARE ACTIVITY FOR ESTIMATED NUTRITIONAL NEEDS. 1. CONTINUE REGULAR DIET 2. RD TO FOLLOW-UP 2-3 DAYS, HIGH RISK CHAN RAMIREZ RD
[2017-08-13 12:00] VITALS: BP 84/47
--- NOTE | 2017-08-13 12:20 | NUR ---
PT SLEEPING, EASILY AWAKENS. ASSISTED PT IN CHANGING OF POSITIONS. NO S/S OF ACUTE DISTRESS. ALL NEEDS MET.
--- NOTE | 2017-08-13 12:30 | NUR ---
SPOKE WITH DR. FREY REGARDING PATIENT'S BP LOW 80S. PER MD, CONTINUE TO MONITOR.
--- NOTE | 2017-08-13 14:27 | NUR ---
PT C/O LEFT FLANK PAIN. DR. FREY SPOKE WITH PATIENT AT BEDSIDE, DISCUSSED PLAN OF CARE. MD AWARE OF LOW BP, OKAY TO ADMINISTER NORCO FOR PAIN. MEDICATION ADMINISTERED. NO S/S OF ACUTE DISTRESS NOTED.
--- NOTE | 2017-08-13 15:23 | NUR ---
RECEIVED REPORT FROM THOMPSON MAYERS, PT IS AAOX4, IV TO LEFT AC 20G INFUSING WELL, RIGHT ARM WOUND, BLE EDEMA. ALL SAFETY PRECAUTIONS MET. CALL LIGHT WITHIN REACH. WILL CONTINUE TO MONITOR.
--- NOTE | 2017-08-13 15:23 | NUR ---
ENDORSED PLAN OF CARE TO RIANA JOE AT PT BEDSIDE. NO S/S OF ACUTE DISTRESS.
[2017-08-13 16:00] VITALS: BP 82/45
--- NOTE | 2017-08-13 16:10 | NUR ---
PT CURRENTLY RESTING IN BED, NO S.S OF DISTRESS NOTED. WILL CONTINUE TO MONITOR.
--- NOTE | 2017-08-13 19:00 | NUR ---
PATIENT HAD BOWEL MOVEMENT ON HIMSELF/BED, WAITING TO BE CLEAN UP AND DID NOT WANT HHN AT THIS TIME
--- NOTE | 2017-08-13 19:32 | NUR ---
ENDORSED PLAN OF CARE TO NIGHT NURSE, PT IN STABLE CONDITION
--- NOTE | 2017-08-13 19:35 | NUR ---
RECEIVED REPORT FROM DAY RN. PATIENT RESTING IN BED, AWAKE AND ORIENTED X2. NO S/S OF ACUTE DISTRESS NOTED, RESPIRATION EVEN AND UNLABORED, IV ON LT AC PATENT AND INTACT, INFUSING NS AT 80ML/HR. PATIENT BP 84/50, HR 58, O2SAT 96%, MADE DR. FRANCO AWARE. CALL LIGHT WITHIN REACH, SAFETY MEASURE ENSURED, WILL CONTINUE TO MONITOR.
[2017-08-13 20:00] VITALS: BP 84/50
--- NOTE | 2017-08-13 20:50 | NUR ---
PATIENT STATED PAIN 3/10 BEHIND HIS EYES, PAIN MEDICATION GIVEN ORDERED, NO S/S OF ACUTE DISTRESS NOTED, RESPIRATION EVEN AND UNLABORED, CALL LIGHT WITHIN REACH, SAFETY MEASURE ENSURED, WILL CONTINUE TO MONITOR.
--- NOTE | 2017-08-13 23:55 | NUR ---
PATIENT IS SLEEPING , NO S/S OF ACUTE DISTRESS NOTED, RESPIRATION EVEN AND UNLABORED, CALL LIGHT WITHIN REACH, SAFETY MEASURE ENSURED, WILL CONTINUE TO MONITOR.
[2017-08-14] VITALS: BP 94/52
[2017-08-14] MEDS: ALBUTEROL 0.083% 2.5 MG/3 ML NEBU INH SCH ×3 (01:33→13:38)
[2017-08-14] MEDS: IPRATROPIUM 0.02% 0.5 MG/2.5 ML NEBU INH SCH ×3 (01:33→13:38)
[2017-08-14 04:00] VITALS: BP 88/54
--- NOTE | 2017-08-14 04:03 | NUR ---
PATIENT IS SLEEPING, NO S/S OF ACUTE DISTRESS NOTED, RESPIRATION EVEN AND UNLABORED, CALL LIGHT WITHIN REACH, SAFETY MEASURE ENSURED, WILL CONTINUE TO MONITOR.
[2017-08-14] MEDS: levETIRAcetam 500 MG TAB PO SCH ×2 (04:26→12:14)
[2017-08-14] MEDS: PIPER/TAZO 3.375GM/D5W PREMIX 50 ML IV SCH ×2 (04:26→12:13)
--- NOTE | 2017-08-14 04:31 | NUR ---
AM MEDICATION GIVEN, ZOSYN STARTED, PATIENT TOLERATED WELL. WILL CONTINUE TO MONITOR
--- NOTE | 2017-08-14 06:10 | NUR ---
SPUTUM COLLECTED AND IS SENT TO THE LAB.
--- NOTE | 2017-08-14 07:11 | NUR ---
ENDORSED PLAN OF CARE TO DAY RN. PATIENT RESTING IN BED, IN STABLE CONDITION. NO S/S OF ACUTE DISTRESS NOTED.
--- NOTE | 2017-08-14 07:12 | NUR ---
RECEIVED REPORT FROM NIGHT NURSE AT PT BEDSIDE. PATIENT IS ALERT AND ORIENTED, BLIND.
--- NOTE | 2017-08-14 07:13 | NUR ---
PATIENT FOLLOWS COMMANDS. PATIENT HAS MILD SHAKINESS NOTED. IV SITE PATENT AND INTACT. DENIES PAIN. NO S/S OF RESPIRATORY DISTRESS. CALL LIGHT WITHIN REACH. BED IN LOWEST POSITION, DRESSING ON RIGHT ARM CLEAN DRY AND INTACT.
[2017-08-14 08:00] VITALS: BP 110/60
[2017-08-14] MEDS: ESCITALOPRAM 20 MG TAB PO SCH (08:38)
[2017-08-14] MEDS: TAMSULOSIN 0.4 MG CAP PO SCH (08:38)
[2017-08-14] MEDS: NACL 0.9% 1,000 ML IV SCH (08:39)
[2017-08-14] MEDS: LACTOBACILLUS RHAMNOSUS GG 1 EACH CAP PO SCH (08:39)
--- NOTE | 2017-08-14 09:28 | NUR ---
PATIENT HAD BM, ASSISTED PT IN CHANGING OF POSITIONS. LINENS CLEANED AND DRY. NO S/S OF ACUTE DISTRESS NOTED.
[2017-08-14 12:00] VITALS: BP 130/60
--- NOTE | 2017-08-14 12:30 | NUR ---
ASSISTED PT IN CHANGING OF POSITIONS. LINENS CHANGED. PATIENT CLEAN AND DRY. CALL LIGHT WITHIN REACH. NO S/S OF ACUTE DISTRESS.
[2017-08-14] MEDS ORDERED: LEVO750T2 PO (12:44)
[2017-08-14] MEDS ORDERED: ACET-2863 PO (12:55)
--- NOTE | 2017-08-14 14:10 | NUR ---
PATIENT TO BE DISCHARGED HOME. BOARD AND CARE FROM [facility] HERE TO TAKE PATIENT HOME. PATIENT DISCHARGE INSTRUCTIONS GIVEN, MEDICATION TEACHING GIVEN, VERBALIZED UNDERSTANDING. F/U APPOINTMENTS FOR PATIENT MADE BY . PATIENT ASSISTED TO WHEELCHAIR. IV REMOVED, CANULA INTACT. DRESSING ON RIGHT FOREARM DRY AND INTACT. AMBULATORY WITH ASSIST. [facility] TO [facility]. NO S/S OF ACUTE DISTRESS.
== END 2017-08-14 14:10 | DRG 177 ==
LOC: MED 10:59 → MTU 15:19
PROVIDERS: ADMIT Family Medicine Sports Medicine; ATTEND Family Medicine Sports Medicine
DX: J69.0 Pneumonitis due to inhalation of food and vomit (principal); G93.41 Metabolic encephalopathy; E43 Unspecified severe protein-calorie malnutrition; I50.43 Acute on chronic combined systolic (congestive) and diastolic (congestive) heart failure; K56.7 Ileus, unspecified; E86.0 Dehydration; Z68.1 Body mass index [BMI] 19.9 or less, adult; J44.1 Chronic obstructive pulmonary disease with (acute) exacerbation; E83.42 Hypomagnesemia; E83.39 Other disorders of phosphorus metabolism; R62.7 Adult failure to thrive; G40.909 Epilepsy, unspecified, not intractable, without status epilepticus; F32.9 Major depressive disorder, single episode, unspecified; F41.9 Anxiety disorder, unspecified; H54.0 Blindness, both eyes; D53.9 Nutritional anemia, unspecified; N20.0 Calculus of kidney; N40.0 Benign prostatic hyperplasia without lower urinary tract symptoms; T83.098A Other mechanical complication of other urinary catheter, initial encounter; R31.9 Hematuria, unspecified; Z88.2 Allergy status to sulfonamides; Z90.49 Acquired absence of other specified parts of digestive tract; Z90.5 Acquired absence of kidney; Z79.899 Other long term (current) drug therapy
CPT/HCPCS: 36415; 70450; 71010; 76770; 80048; 80053; 80173; 81001; 82150; 82607; 82746; 83036; 83605; 83690; 83735; 83880; 84100; 84436; 84439; 84443; 84479; 84484; 85025; 85610; 87040; 87081; 87086; 87205; 93005; 94640; 96361; 96365; 99285; C1758; J2543; J3370; J3475; J7030; J7613; J7644; Q0092

== ENCOUNTER 2017-08-29 10:35 | Inpatient (IN) | payer OTHER, MEDICAID ==
[~2017-08-29] VITALS: Ht 182.9 cm; Wt 57.2 kg
[~2017-08-29 10:35] MED LIST changes: +ACET-2863 PO; +LEVO750T2 PO
[2017-08-29] MEDS ORDERED: NACL 0.9% 2,000 ML IV ONE (10:39)
--- NOTE | 2017-08-29 10:49 | NUR ---
Patient transferred to bed 6 via wheelchair, accompanied by family. RN evaluating patient at bedside.
[2017-08-29 10:50] VITALS: BP 99/56
--- NOTE | 2017-08-29 10:50 | NUR ---
PATIENT PRESENTS TO ED WITH C/O ON AND OFF FEVER AND DIARRHEA . PRIMARY CAREGIVER STATES THAT PATIENT HAS BEEN HAVING DIARRHEA FOR THE PAST WEEK . DENIES N/V/; SKIN IS PINK/WARM/DRY. PURPLE DISCOLORATION NOTED TO BUE. REDNESS NOTED TO THE PERINEAL AREA. AAOX4. PATIENT PRESENTS WITH GENERALIZED WEAKNESS; RONCHI NOTED ; HR EVEN AND REGULAR; NON-PRODUCTIVE INTERMITTENT COUGHING NOTED; PATIENT STATES PAIN OF 0/10 AT THIS TIME; VSS; PATIENT POSITIONED FOR COMFORT; HOB ELEVATED; BEDRAILS UP X2; BED DOWN. ER MD MADE AWARE OF PT STATUS.
--- NOTE | 2017-08-29 10:51 | NUR ---
Dr. Kamara evaluating patient at bedside.
--- NOTE | 2017-08-29 11:04 | NUR ---
Nichelle christianson in ED - 08/29/17 at 1105 by MMTHEM Patient ambulated to bed 6. RN evaluating patient at bedside.
--- NOTE | 2017-08-29 11:25 | NUR ---
RECTAL TEMP 98.5 TAKEN BY RIANA RIVERA, DR SOSA NOTIFIED
[2017-08-29 11:34] LABS: HEMATOCRIT 36.6 % (36-52); HEMOGLOBIN 12.2 g/dL (12.0-18.0); MEAN CORPUSCULAR HEMOGLOBIN 35 pg (27-31); MEAN CORPUSCULAR HGB CONC 34 g/dL (33-37); MEAN CORPUSCULAR VOLUME 104 fL (80-94); PLATELET COUNT (AUTO) 108 K/uL (140-450); RED BLOOD CELL COUNT(AUTO) 3.51 MIL/uL (4.20-6.10); RED CELL DISTRIBUTION WIDTH 14.4 % (11.6-13.7); WHITE BLOOD COUNT (AUTO) 6.4 K/uL (4.8-10.8)
[2017-08-29 11:40] LABS: ANION GAP 9.5 (8-16); CARBON DIOXIDE 30.2 mmol/L (21-32); CREATININE 1.1 mg/dL (0.7-1.3); POTASSIUM 3.7 mmol/L (3.5-5.1)
[2017-08-29 11:47] LABS: LYMPHOCYTES % (MANUAL) 10 % (20-46); MONOCYTES % (MANUAL) 14 % (5-12)
[2017-08-29 12:02] LABS: ALBUMIN 2.4 g/dL (3.4-5.0); TOTAL BILIRUBIN 0.6 mg/dL (0.0-1.0)
[2017-08-29 12:14] LABS: BILIRUBIN,URINE 1+ (NEGATIVE); BLOOD, URINE 3+ (NEGATIVE); COLOR,URINE YELLOW (YELLOW); LEUKOCYTE ESTERASE ,URINE NEGATIVE (NEGATIVE); NITRITE, URINE NEGATIVE (NEGATIVE); UGLUCOSE NEGATIVE (NEGATIVE)
--- NOTE | 2017-08-29 12:17 | NUR ---
PATIENT LEFT FOR CT
[2017-08-29] MEDS ORDERED: ONDANSETRON 4 MG/2 ML VIAL IVP PRN (12:45)
[2017-08-29] MEDS ORDERED: HYDROcodone/APAP 7.5/325 MG 1 TAB PO PRN (12:45)
[2017-08-29] MEDS ORDERED: ACETAMINOPHEN 325 MG TAB PO PRN (12:45)
[2017-08-29 12:50] VITALS: BP 108/43
[2017-08-29] MEDS: NACL 0.9% 1,000 ML IV SCH ×2 (12:50→18:55)
--- NOTE | 2017-08-29 12:50 | NUR ---
PT ARRIVE FROM ER VIA GURNEY, PT STABLE, NO DISTRESS NOTED, AAO X4, ON ROOM AIR, IV ON RFA 20G, INFUSING WELL, PT BLIND ON BOTH EYES, SACRAL REDNESS, SKIN TEAR ON R FA, BILATERAL BRUISING ON ALL EXTREMITIES, STEVEN IN PLACE DRAINING ROCKY COLORED URINE, CAREGIVER AT BEDSIDE, INITIAL ASSESSMENT COMPLETED, ALL SAFETY PRECAUTION IN PLACE, SEIZURE PRECAUTION INITIATED, CALL LIGHT WITHIN REACH, ORIENTED PT TO ROOM AND ENVIRONMENT, WILL CONTINUE TO MONITOR. Addendum: 08/29/17 at 1619 by Gayla Babcock RN IV FLUID STARTED @150ML/HR
--- NOTE | 2017-08-29 12:55 | NUR ---
Patient will be admitted to care of DR LOZANO. Admited to [facility]. Will go to [id number]. Belongings list completed. Report to RIANA CHANDRA.
[2017-08-29 12:59] LABS: RBC,URINE 3-10 (FEW) /HPF (0-5); WBC,URINE 0-5 (RARE) /HPF (0-5)
[2017-08-29 13:00] LABS: APPEARANCE,URINE CLEAR (CLEAR)
[2017-08-29 13:35] LABS: BARBITURATE, URINE NEG. ng/ml (NEG <=200); BENZODIAZEPINE, URINE NEG. ng/mL (NEG <=200); CANNABINOID, URINE NEG. ng/mL (NEG <=50); COCAINE, URINE NEG. ng/mL (NEG <=300); OPIATE, URINE NEG. ng/mL (NEG <=2000); PHENCYCLIDINE SCREEN,URINE NEG. ng/mL (NEG <=25)
[2017-08-29 13:44] LABS: CHOL/HDL RATIO 3.2 (1-4.5); FREE T4 (FREE THYROXINE) 0.89 ng/dL (0.76-1.46); MAGNESIUM 1.8 mg/dL (1.8-2.4); PHOSPHORUS 2.8 mg/dL (2.5-4.9); THYROID STIMULATING HORMONE 1.9 uIU/mL (0.34-3.74)
--- NOTE | 2017-08-29 14:22 | NUR ---
PT SLEEPING, EASY TO AROUSE, NO DISTRESS NOTED, ALL SAFETY PRECAUTION ARE MET, CALL LIGHT WITHIN REACH, WILL CONTINUE TO MONITOR.
[2017-08-29] MEDS ORDERED: ALBUTEROL SULFATE/IPRATROPIU 3 ML SOL IH PRN (14:35)
[2017-08-29] MEDS ORDERED: MORPHINE SULFATE 2 MG/ML SYR IVP PRN (14:45)
[2017-08-29 15:56] VITALS: BP 106/65
--- NOTE | 2017-08-29 16:15 | NUR ---
PT SLEEPING, EASY TO AROUSE, NO DISTRESS NOTED, CALL LIGHT WITHIN REACH, WILL CONTINUE TO MONITOR.
[2017-08-29] MEDS: PIPER/TAZO 3.375GM/D5W PREMIX 50 ML IV SCH ×2 (17:15→23:42)
--- NOTE | 2017-08-29 17:25 | NUR ---
MEDICATION GIVEN PER MD ORDER, STEVEN D/C PER MD ORDER, PT TOLERATED WELL, PT STABLE, NO DISTRESS NOTED, CALL LIGHT WITHIN REACH. WILL CONTINUE TO MONITOR.
[2017-08-29] MEDS ORDERED: HYDRAGUARD CREAM TP PRN (18:35)
--- NOTE | 2017-08-29 19:19 | NUR ---
GIVE BEDSIDE REPORT TO NIGHT NURSE, PT RESTING, NO DISTRESS NOTED, CALL LIGHT WITHIN REACH.
--- NOTE | 2017-08-29 19:35 | NUR ---
RECEIVE DPT IN STABLE CONDITION FROM AM NURSE FOR CONTINUITY OF CARE. AWAKE,ALERT AND ORIENTED X4. ON TELE MONITOR-SB. BEDREST DUE TO GEN WEAKNESS. CAME DUE TO DEHYDRATION, DIARRHEA, PNA. WITH IVF INFUSING WELL ON THE RT FA # [phone] CLEAR AND PATENT. SIDE RAILS UP , AND PADDED DUE TO SEIZURE PRECAUTION. PLAN OF CARE DISCUSSED AND VERBALIZED UNDERSTANDING. CALL LIGHT AND URINAL PLACED WITHIN EASY REACH. WILL NEED FREQUENT ROUNDS. WILL CONTINUE TO MONITOR.
[2017-08-29 19:58] VITALS: BP 117/63
[2017-08-29] MEDS: DOCUSATE SODIUM 100 MG GELCAP PO SCH (20:48)
[2017-08-29] MEDS: levETIRAcetam 500 MG TAB PO SCH (20:49)
--- NOTE | 2017-08-29 21:00 | NUR ---
COLLECTED STOOL SPECIMEN AND SEND TO LAB.
--- NOTE | 2017-08-29 22:00 | NUR ---
SLEEPING AT THIS TIME. NO S/S OF ANY DISCOMFORT NOTED.
[2017-08-30] VITALS (7 sets, daily range): BP systolic 87–134; BP diastolic 42–65
--- NOTE | 2017-08-30 01:30 | NUR ---
PT ASSISTED TO USE URINAL. VOIDED @200ML. REPOSITIONED FOR COMFORT.
[2017-08-30] MEDS: NACL 0.9% 1,000 ML IV SCH ×4 (02:21→21:39)
--- NOTE | 2017-08-30 03:30 | NUR ---
MADE ROUNDS. ASLEEP. NI S/S OF ANY DISCOMFORT NOR DISTRESS NOTED.
--- NOTE | 2017-08-30 04:50 | NUR ---
1900 UNAWARE OF THIS NTX ORDER.
[2017-08-30] MEDS: PIPER/TAZO 3.375GM/D5W PREMIX 50 ML IV SCH ×4 (05:44→23:52)
[2017-08-30] MEDS: levETIRAcetam 500 MG TAB PO SCH ×3 (05:48→21:39)
--- NOTE | 2017-08-30 06:00 | NUR ---
BLOOD WAS DRAWN THIS AM. WILL FOLLOW UP RESULT.
[2017-08-30 06:52] LABS: ANION GAP 8.2 (8-16); CARBON DIOXIDE 26.5 mmol/L (21-32); CREATININE 0.9 mg/dL (0.7-1.3); POTASSIUM 3.7 mmol/L (3.5-5.1)
[2017-08-30 06:53] LABS: HEMATOCRIT 35.9 % (36-52); HEMOGLOBIN 11.9 g/dL (12.0-18.0); MEAN CORPUSCULAR HEMOGLOBIN 35 pg (27-31); MEAN CORPUSCULAR HGB CONC 33 g/dL (33-37); MEAN CORPUSCULAR VOLUME 104 fL (80-94); PLATELET COUNT (AUTO) 65 K/uL (140-450); RED BLOOD CELL COUNT(AUTO) 3.45 MIL/uL (4.20-6.10); RED CELL DISTRIBUTION WIDTH 14.5 % (11.6-13.7); WHITE BLOOD COUNT (AUTO) 6.3 K/uL (4.8-10.8)
[2017-08-30 07:10] LABS: PHOSPHORUS 8.5 mg/dL (2.5-4.9)
--- NOTE | 2017-08-30 07:15 | NUR ---
RECEIVED PT REPORT AT BEDSIDE FROM NIGHT NURSE. PT IS AAOX4 AND SHOWS NO S/S OF ACUTE DISTRESS ON ROOM AIR. IV NOTED ON THE RIGHT AC WITH NS RUNNING AT 10ML/HR. NO SIGNS OF INFILTRATION. PT DENIES PAIN. BED IS IN LOW POSITION, CALL LIGHT WITHIN REACH. WILL CONTINUE TO MONITOR. Addendum: 08/30/17 at 1045 by Joshua Cortes RN RECEIVED PT REPORT AT BEDSIDE FROM NIGHT NURSE. PT IS AAOX4 AND SHOWS NO S/S OF ACUTE DISTRESS ON ROOM AIR. IV NOTED ON THE RIGHT FOREARM WITH NS RUNNING AT 100ML/HR. NO SIGNS OF INFILTRATION. PT DENIES PAIN. BED IS IN LOW POSITION AND SEMI GIRALDO. SEIZURE PRECAUTION IN PLACE. CALL LIGHT WITHIN REACH. WILL CONTINUE TO MONITOR.
[2017-08-30] MEDS: ALBUTEROL SULFATE/IPRATROPIU 3 ML SOL IH SCH ×3 (07:16→19:00)
--- NOTE | 2017-08-30 07:25 | NUR ---
ENDORSED PT IN STABLE CONDITION TO AM NURSE FOR CONTINUITY OF CARE.
[2017-08-30 07:40] LABS: BASOPHILS % (MANUAL) 0 % (0-2); EOSINOPHILS % (MANUAL) 0 % (0-4); LYMPHOCYTES % (MANUAL) 26 % (20-46); MONOCYTES % (MANUAL) 10 % (5-12)
[2017-08-30] MEDS ORDERED: TAMSULOSIN 0.4 MG CAP PO SCH (08:30)
[2017-08-30] MEDS: TAMSULOSIN 0.4 MG CAP PO SCH (08:35)
[2017-08-30] MEDS: LACTOBACILLUS RHAMNOSUS GG 1 EACH CAP PO SCH (08:36)
[2017-08-30] MEDS: predniSONE 5 MG TAB PO SCH (08:36)
[2017-08-30] MEDS: ESCITALOPRAM 20 MG TAB PO SCH (08:36)
[2017-08-30] MEDS: PANTOPRAZOLE 40 MG TABEC PO SCH (08:37)
[2017-08-30] MEDS: LACTULOSE 20 GM/30 ML UDC PO SCH (08:37)
[2017-08-30] MEDS: DOCUSATE SODIUM 100 MG GELCAP PO SCH ×2 (08:43→21:00)
[2017-08-30] MEDS: FOLIC ACID 1 MG TAB PO SCH (08:43)
[2017-08-30] MEDS: CYANOCOBALAMIN 100 MCG TAB PO SCH (08:45)
--- NOTE | 2017-08-30 09:00 | NUR ---
PATIENT HAD A BM. STOOL LOOSE AND MODERATE IN AMOUNT. STOOL SAMPLE COLLECTED. PATIENT GIVEN PERINEAL CARE. PATIENT REPOSITIONED FOR COMFORT
[2017-08-30] MEDS ORDERED: guaiFENesin 20 MG/ML UDC PO PRN (10:25)
[2017-08-30] MEDS ORDERED: LORazepam 1 MG TAB PO PRN (10:30)
[2017-08-30] MEDS ORDERED: LORazepam 2 MG/ML VIAL IVP PRN (11:05)
[2017-08-30] MEDS: CALCIUM ACETATE 667 MG TAB PO SCH ×2 (12:13→17:26)
--- NOTE | 2017-08-30 12:32 | NUR ---
NOTIFIED DR. GAMBOA ABOUT PT HR 47, PT IS ASYMPTOMATIC. WILL CONTINUE TO MONITOR.
[2017-08-30] MEDS ORDERED: HYDRAGUARD CREAM TP PRN (13:00)
[2017-08-30] MEDS ORDERED: metroNIDAZOLE 500 MG/NS PREMIX 100 ML IV SCH (13:00)
[2017-08-30] MEDS: metroNIDAZOLE 500 MG TAB PO SCH ×2 (13:24→17:25)
--- NOTE | 2017-08-30 16:00 | NUR ---
Social Service Note: I faxed inquiries to the following snfs: [facility]
--- NOTE | 2017-08-30 19:30 | NUR ---
ENDORSED PT TO STEWARD/STEWARDESS NIGHT. PT REPORT GIVEN AT BEDSIDE. PT IS IN STABLE CONDITION. PT SHOWS NO S/S ACUTE DISTRESS.
--- NOTE | 2017-08-30 19:32 | NUR ---
RECEIVED PT IN STABLE CONDITION FROM AN NURSE. AWAKE,ALERT AND ORIENTED X4. BEDREST. ON TELE MONITOR. WITH NO RESPIRATORY DISTRESS NOTED. LUNG SOUNDS DIMINISHED. WITH OCCASIONAL NON PRODUCTIVE COUGH, O2 SAT ON RA 95%. HAS IVF INFUSING WELL ON THE RT FA#20. CLEAR AND PATENT. WITH REDNESS ON THE SACRAL /PERINEAL AREA DUE TO DIARRHEA. MULTIPLE BRUISES ON GONZALEZ EXTREMITIES. BED ON LOW POSITION. SIDE RAILS UP AND WITH PADS FOR SEIZURE PRECAUTION. CALL LIGHT PLACED WITHIN EASY REACH, PT LEGALLY BLIND. WILL CONTINUE TO MONITOR.
--- NOTE | 2017-08-30 21:00 | NUR ---
INCONTINENT OF URINE . CLEANED WITH WATER AND PAT DRY. APPLIED HYDRA GUARD TO SACRAL AND PERINEAL .
[2017-08-30] MEDS: VALPROIC ACID 250 MG/5 ML UDC PO SCH (21:39)
--- NOTE | 2017-08-30 22:30 | NUR ---
MADE ROUNDS. SLEEPING WELL. NO S/S OF DISCOMFORT NOR PAIN NOTED.
--- NOTE | 2017-08-30 23:58 | NUR ---
VITAL SIGNS TAKEN. BP ONLY 90/54. WITH HR-56, 97% O2 SAT ON ROOM AIR. PT IS ASYMPTOMATIC. WILL CONTINUE TO MONITOR.
--- NOTE | 2017-08-31 01:30 | NUR ---
MADE ROUNDS. PT IS ASLEEP. NO S/S OF ANY RESPIRATORY DISTRESS NOR DISCOMFORT NOTED.
--- NOTE | 2017-08-31 03:15 | NUR ---
ASSISTED PT TO USE THE URINAL. VOIDED @ 200ML. REPOSITIONED FOR COMFORT.
[2017-08-31 04:00] VITALS: BP 95/60
--- NOTE | 2017-08-31 04:00 | NUR ---
PT STILL WITH OCCASIONAL PRODUCTIVE COUGH WITH THIN WHITISH SECRETIONS IN SAMLL AMOUNT. NO DISTRESS NOTED.
[2017-08-31] MEDS: levETIRAcetam 500 MG TAB PO SCH ×3 (05:13→21:12)
[2017-08-31] MEDS: PIPER/TAZO 3.375GM/D5W PREMIX 50 ML IV SCH ×3 (05:17→17:36)
--- NOTE | 2017-08-31 05:30 | NUR ---
PT INCONTINENT OF URINE AND STOOL. CLEANED AND KEPT DRY.REPOSITIONED FOR COMFORT.
[2017-08-31 06:15] LABS: ANION GAP 7.6 (8-16); CARBON DIOXIDE 28.7 mmol/L (21-32); CREATININE 1.1 mg/dL (0.7-1.3); POTASSIUM 3.3 mmol/L (3.5-5.1)
[2017-08-31 06:31] LABS: HEMATOCRIT 37.3 % (36-52); HEMOGLOBIN 12.1 g/dL (12.0-18.0); MEAN CORPUSCULAR HEMOGLOBIN 34 pg (27-31); MEAN CORPUSCULAR HGB CONC 32 g/dL (33-37); MEAN CORPUSCULAR VOLUME 104 fL (80-94); PLATELET COUNT (AUTO) 107 K/uL (140-450); RED BLOOD CELL COUNT(AUTO) 3.58 MIL/uL (4.20-6.10); RED CELL DISTRIBUTION WIDTH 14.7 % (11.6-13.7); WHITE BLOOD COUNT (AUTO) 5.1 K/uL (4.8-10.8)
[2017-08-31 06:38] LABS: MAGNESIUM 1.7 mg/dL (1.8-2.4)
[2017-08-31 07:15] LABS: LYMPHOCYTES % (MANUAL) 39 % (20-46)
--- NOTE | 2017-08-31 07:15 | NUR ---
ENDORSED PT IN STABLE CONDITION TO AM NURSE FOR CONTINUITY OF CARE.
[2017-08-31 07:16] LABS: MONOCYTES % (MANUAL) 6 % (5-12)
--- NOTE | 2017-08-31 07:16 | NUR ---
PT SLEEPING NO HHN GIVEN NO SIGNS OF DISTRESS NOTED AT THIS TIME
--- NOTE | 2017-08-31 07:16 | NUR ---
RECEIVED REPORT FROM THE CAPACITY MANAGEMENT SPECIALIST NURSE AT BEDSIDE FOR CONTINUITY OF CARE. PT IS AWAKE AND ALERT. INTRODUCED MYSELF AND UPDATED THE BOARD. PT IS ON CONTACT ISO FOR C-DIFF. PT HAS INCONTINENT DERMATITIS. WILL NEED TO ORDER ZGAURD. BILATERAL EXTREMITIS BRUISING. IV ON FA 20G NS AT 100ML. LABS: K-3.3, MAG. 1.7, PHOS 2.0. WAITING FOR PLACEMENT. WILL CONTINUE TO MONITOR PT.
[2017-08-31] MEDS ORDERED: MAG SULF 2000 MG/WATER PREMIX 50 ML IV ONE (07:25)
[2017-08-31] MEDS: ALBUTEROL SULFATE/IPRATROPIU 3 ML SOL IH SCH ×3 (07:35→19:39)
[2017-08-31 08:00] VITALS: BP 91/52
[2017-08-31] MEDS ORDERED: POTASSIUM CHLORIDE 40 MEQ, LIDOCAINE 1% 25 MG in NACL 0.9% 250 ML IV ONE (08:00)
--- NOTE | 2017-08-31 08:30 | NUR ---
LAB CALLED. PT + MRSA NARES. WILL NOTIFY MD. P/T HERE FOR THERAPY.
[2017-08-31] MEDS ORDERED: SODIUM PHOS / POTASSIUM PHOS 1 PKT PDR PO SCH (09:00)
[2017-08-31] MEDS: DOCUSATE SODIUM 100 MG GELCAP PO SCH (09:00)
[2017-08-31] MEDS ORDERED: BACITRACIN OINT 15000 UNITS/30 GM TUBE TP SCH (09:00)
[2017-08-31] MEDS: ESCITALOPRAM 20 MG TAB PO SCH (09:00)
[2017-08-31] MEDS: LACTULOSE 20 GM/30 ML UDC PO SCH (09:00)
[2017-08-31] MEDS ORDERED: Z-GUARD PASTE TP PRN (09:10)
[2017-08-31] MEDS: LACTOBACILLUS RHAMNOSUS GG 1 EACH CAP PO SCH (09:17)
[2017-08-31] MEDS: PANTOPRAZOLE 40 MG TABEC PO SCH (09:17)
[2017-08-31] MEDS: TAMSULOSIN 0.4 MG CAP PO SCH (09:17)
[2017-08-31] MEDS: FOLIC ACID 1 MG TAB PO SCH (09:18)
[2017-08-31] MEDS: metroNIDAZOLE 500 MG TAB PO SCH ×3 (09:18→17:29)
[2017-08-31] MEDS: predniSONE 5 MG TAB PO SCH (09:18)
[2017-08-31] MEDS: CYANOCOBALAMIN 100 MCG TAB PO SCH (09:21)
[2017-08-31] MEDS: CHLORHEXADINE GLUC 2% CLOTH TP SCH (09:22)
[2017-08-31] MEDS: VALPROIC ACID 250 MG/5 ML UDC PO SCH ×2 (09:22→21:12)
[2017-08-31] MEDS: NACL 0.9% 1,000 ML IV SCH (09:31)
--- NOTE | 2017-08-31 09:51 | NUR ---
PATIENT HAS BEEN SCREENED AND CATEGORIZED HIGH NUTRITION RISK. PATIENT WILL BE SEEN WITHIN 1-2 DAYS OF ADMISSION. 08/30/17-08/31/[address]
[2017-08-31] MEDS: SODIUM PHOS / POTASSIUM PHOS 1 PKT PDR PO SCH ×2 (11:52→17:30)
[2017-08-31] MEDS ORDERED: BENZOCAINE/MENTHOL 1 LOZ MM PRN (11:55)
[2017-08-31 12:00] VITALS: BP 101/59
--- NOTE | 2017-08-31 12:06 | NUR ---
08/31/17 RD INITIAL ASSESSMENT COMPLETED PLEASE REFER TO NUTRITION ASSESSMENT UNDER CARE ACTIVITY FOR ESTIMATED NUTRITIONAL NEEDS. 1. CONTINUE BLAND/SOFT DIET 2. CONTINUE VITAMIN B12 & FOLIC ACID SUPPLEMENT 3. RD TO FOLLOW-UP 3-5 DAYS, MODERATE RISK CHAN RAMIREZ RD
--- NOTE | 2017-08-31 14:21 | NUR ---
PT'S HAND LEATHER TRIMMER IS HERE. PT IS RESTING COMFORTABLY. HAND LEATHER TRIMMER WOULD LIKE TO SPEAK TO DR GAMBOA. LET DR KNOW. SHE IS NOW IN HIS ROOM. TALKING TO THE HAND LEATHER TRIMMER. WILL CONTINUE TO MONITOR PT.
--- NOTE | 2017-08-31 14:58 | NUR ---
PT HAD ANOTHER BM. CALVIN AREA RED D/T CONSTANT WIPING. APPLIED ZGUARD. PT STATES IT FEELS BETTER. WILL CONTINUE TO MONITOR PT.
[2017-08-31 16:00] VITALS: BP 84/50
--- NOTE | 2017-08-31 16:04 | NUR ---
CM NOTE PER SAIGE, ADMIN FOR [facility], [place] TO TAKE PATIENT ONCE DISCHARGED.
--- NOTE | 2017-08-31 17:00 | NUR ---
PT'S CAREGIVER WANTED MEDICAL RECORDS. HAD PT SIGN MEDICAL RELEASE AND GAVE TO MGMT ANALYST TO TAKE TO MR TO MACHINE TOOL ELECTRICIAN RECORDS.
--- NOTE | 2017-08-31 19:15 | NUR ---
ENDORSED PT TO THE NIGHTSHIFT RN AT BEDSIDE FOR CONTINUITY OF CARE. PT IS AWAKE AND ALERT. IN STABLE CONDITION.
--- NOTE | 2017-08-31 19:16 | NUR ---
RECEIVED REPORT FROM THE AM NURSE. PT IS AAOX4. PT IS LEGALLY BLIND. ON CONTACT ISOLATION FOR C-DIFF AND MRSA. PT HAS INCONTINENT DERMATITIS. SEIZURE PRECAUTIONS IN PLACE. BILATERAL EXTREMITIES BRUISING. IV ON FA 20G NS AT 100ML. BED ON LOW POSITION, BILATERAL HALF SIDE RAILS UP, CALL LIGHT WITHIN REACH, WILL CONTINUE TO MONITOR.
--- NOTE | 2017-08-31 19:43 | NUR ---
PATIENT WHEEZING TX REQ RT GAVE PATIENT TREATMENT LATE DUE TO VENT ADMISSION IN ER AT 1900 HOURS. PATIENT STABLE ROSALIE TX NO RESP DISTRESS
[2017-08-31 20:00] VITALS: BP 82/44
--- NOTE | 2017-08-31 23:26 | NUR ---
PT IS SLEEPING, EASY TO AROUSE. NO SIGNS OF ACUTE DISTRESS, BED ON LOW POSITION, BILATERAL HALF SIDE RAILS UP, SEIZURE PRECAUTIONS IN PLACE, CALL LIGHT WITHIN REACH, WILL CONTINUE TO MONITOR.
[2017-09-01] VITALS (7 sets, daily range): BP systolic 87–100; BP diastolic 23–66
[2017-09-01] MEDS: PIPER/TAZO 3.375GM/D5W PREMIX 50 ML IV SCH ×5 (00:48→23:43)
[2017-09-01] MEDS: NACL 0.9% 1,000 ML IV SCH ×3 (01:32→23:45)
[2017-09-01] MEDS: levETIRAcetam 500 MG TAB PO SCH ×3 (05:48→20:42)
[2017-09-01] MEDS: ALBUTEROL SULFATE/IPRATROPIU 3 ML SOL IH SCH ×4 (05:55→19:04)
--- NOTE | 2017-09-01 06:30 | NUR ---
MORNING BREATHING TX WAS GIVEN BY RT. STEFANIE MATTHEWS, ASSESSED PT NO SIGNS OF DISTRESS NOTED AT THIS TIME PT WAS SLEEPING
[2017-09-01 06:40] LABS: FOLIC ACID 8.1 ng/mL (>3.0)
[2017-09-01 06:42] LABS: HEMATOCRIT 35.7 % (36-52); HEMOGLOBIN 11.4 g/dL (12.0-18.0); MEAN CORPUSCULAR HEMOGLOBIN 33 pg (27-31); MEAN CORPUSCULAR HGB CONC 32 g/dL (33-37); MEAN CORPUSCULAR VOLUME 104 fL (80-94); PLATELET COUNT (AUTO) 121 K/uL (140-450); RED BLOOD CELL COUNT(AUTO) 3.43 MIL/uL (4.20-6.10); RED CELL DISTRIBUTION WIDTH 14.5 % (11.6-13.7); WHITE BLOOD COUNT (AUTO) 4.5 K/uL (4.8-10.8)
[2017-09-01 06:45] LABS: ANION GAP 8.7 (8-16); CARBON DIOXIDE 26.2 mmol/L (21-32); CREATININE 1.1 mg/dL (0.7-1.3); POTASSIUM 3.9 mmol/L (3.5-5.1)
[2017-09-01 06:48] LABS: MAGNESIUM 1.9 mg/dL (1.8-2.4); PHOSPHORUS 1.8 mg/dL (2.5-4.9)
[2017-09-01 07:02] LABS: LYMPHOCYTES % (MANUAL) 44 % (20-46); MONOCYTES % (MANUAL) 7 % (5-12)
--- NOTE | 2017-09-01 07:15 | NUR ---
ENDORSED PT TO AM NURSE. PT IS IN STABLE CONDITION.
--- NOTE | 2017-09-01 07:20 | NUR ---
RECEIVED PT REPORT FROM ADZING AND BORING MACHINE OPERATOR. PT IS ASLEEP. NO S/S OF ACUTE DISTRESS NOTED. IV NOTED ON THE RIGHT FA. NO SIGNS OF SWELLING OR INFILTRATION. CALL LIGHT IS WITHIN REACH. BED IN LOW POSITION. HOB ELEVATED.
[2017-09-01] MEDS: CHLORHEXADINE GLUC 2% CLOTH TP SCH (09:00)
[2017-09-01] MEDS: TAMSULOSIN 0.4 MG CAP PO SCH (09:02)
[2017-09-01] MEDS: PSYLLIUM 12.2 GM/PKT PO SCH (09:03)
[2017-09-01] MEDS: SODIUM PHOS / POTASSIUM PHOS 1 PKT PDR PO SCH ×3 (09:04→17:14)
[2017-09-01] MEDS: metroNIDAZOLE 500 MG TAB PO SCH ×3 (09:05→17:15)
[2017-09-01] MEDS: ESCITALOPRAM 20 MG TAB PO SCH (09:09)
[2017-09-01] MEDS: FOLIC ACID 1 MG TAB PO SCH (09:10)
[2017-09-01] MEDS: predniSONE 5 MG TAB PO SCH (09:11)
[2017-09-01] MEDS: LACTOBACILLUS RHAMNOSUS GG 1 EACH CAP PO SCH (09:12)
[2017-09-01] MEDS: VALPROIC ACID 250 MG/5 ML UDC PO SCH ×2 (09:13→20:41)
[2017-09-01] MEDS: MUPIROCIN 2% OINT 22 GM TUBE TP SCH (09:26)
[2017-09-01] MEDS: PANTOPRAZOLE 40 MG TABEC PO SCH (09:26)
[2017-09-01] MEDS: CYANOCOBALAMIN 100 MCG TAB PO SCH (09:27)
--- NOTE | 2017-09-01 13:10 | NUR ---
pt sleeping no hhn given no signs of distress noted at this time
--- NOTE | 2017-09-01 14:05 | NUR ---
PT HAD BMX2. STOOL IS YELLOW AND LOOSE. CALVIN ARE CLEANED AND DRIED. REPOSITION PT TO LEFT SIDE. NO S/S OF DISTRESS NOTED.
--- NOTE | 2017-09-01 15:09 | NUR ---
SPOKE WITH CONNIE GARCIA FROM THE [facility], AND INFORMED HER THAT THIS PATIENT WILL GO TO [facility] UPON DISCHARGE. SHE SAID SHE ALREADY SPOKE WITH SAIGE FROM [facility]. I CALLED [facility] THIS AM AND SPOKE WITH SEBASTIAN AND INFORMED HER THAT THE PATIENT IS POSITIVE FOR C DIF. SPOKE WITH SEBASTIAN FROM [facility] THIS PM. SHE ASKED ME TO FAX INQUIRY TO HER, H&P, MEDS, FACE SHEET ETC TO HER AT [phone].
--- NOTE | 2017-09-01 19:30 | NUR ---
ASSUMED CARE OF PATIENT, AWAKE, ALERT AND ORIENTED. RT AT BEDSIDE FOR BREATHING TREATMENT. NO COMPLAINS. CALL LIGHT WITHIN REACH.
--- NOTE | 2017-09-01 19:33 | NUR ---
REPORT GIVEN TO THE NIGHT NURSE AT PT BEDSIDE FOR CONTINUITY OF CARE. PT IS IN STABLE CONDITION. NO S/S OF ACUTE DISTRESS.
--- NOTE | 2017-09-01 20:00 | NUR ---
REPOSITIONED BY METAL FITTER. CALL LIGHT WITHIN REACH. VITAL SIGNS STABLE. NO COMPLAINS. CARE BOARD UPDATED. PLAN OF CARE DISCUSSED WITH PATIENT.
--- NOTE | 2017-09-01 23:45 | NUR ---
PERICARE, REPOSITIONED BY ROD HANGER. NO COMPLAINS. VITAL SIGNS STABLE. CALL LIGHT WITHIN REACH.
[2017-09-02 04:24] VITALS: BP 89/45
[2017-09-02] MEDS: NACL 0.9% 1,000 ML IV SCH (05:34)
[2017-09-02] MEDS: PIPER/TAZO 3.375GM/D5W PREMIX 50 ML IV SCH ×3 (05:34→17:12)
[2017-09-02] MEDS: levETIRAcetam 500 MG TAB PO SCH ×3 (05:34→21:06)
[2017-09-02] MEDS ORDERED: NACL 0.9% 1,000 ML IV ONE (06:00)
[2017-09-02 06:02] LABS: HEMATOCRIT 36.3 % (36-52); HEMOGLOBIN 11.6 g/dL (12.0-18.0); MEAN CORPUSCULAR HEMOGLOBIN 34 pg (27-31); MEAN CORPUSCULAR HGB CONC 32 g/dL (33-37); MEAN CORPUSCULAR VOLUME 105 fL (80-94); PLATELET COUNT (AUTO) 151 K/uL (140-450); RED BLOOD CELL COUNT(AUTO) 3.45 MIL/uL (4.20-6.10); RED CELL DISTRIBUTION WIDTH 14.8 % (11.6-13.7); WHITE BLOOD COUNT (AUTO) 4.5 K/uL (4.8-10.8)
[2017-09-02 06:18] LABS: MAGNESIUM 1.6 mg/dL (1.8-2.4); PHOSPHORUS 2.1 mg/dL (2.5-4.9)
[2017-09-02 06:20] LABS: ANION GAP 8.2 (8-16); CARBON DIOXIDE 26.5 mmol/L (21-32); POTASSIUM 3.7 mmol/L (3.5-5.1)
[2017-09-02 06:45] LABS: LYMPHOCYTES % (MANUAL) 32 % (20-46); MONOCYTES % (MANUAL) 17 % (5-12)
[2017-09-02] MEDS: ALBUTEROL SULFATE/IPRATROPIU 3 ML SOL IH SCH ×3 (06:52→19:30)
--- NOTE | 2017-09-02 07:30 | NUR ---
ENDORSED CARE AT BEDSIDE WITH NGA MAYERS, PATIENT AT BEDSIDE. Addendum: 09/02/17 at 0731 by Jelena Kraft RN PATIENT IN STABLE CONDITION
--- NOTE | 2017-09-02 07:30 | NUR ---
RECEIVED REPORT FROM NIGHT NURSE, PT IS AAOX4, ON ROOM AIR, IV TO RIGHT WRIST 20G INFUSING WELL, SACRAL REDNESS, HEELING SKIN TEAR TO RIGHT FA, LEGALLY BLIND, INITIAL ASSESSMENT COMPLETED, REVIEWED PLAN OF CARE WITH PT, PT VERBALIZED UNDERSTANDING, ALL SAFETY PRECAUTIONS MET, SEIZURE PRECAUTION IN PLACE. CALL LIGHT WITHIN REACH, WILL CONTINUE TO MONITOR.
[2017-09-02 07:35] VITALS: BP 100/59
[2017-09-02] MEDS ORDERED: MAG SULF 2000 MG/WATER PREMIX 50 ML IV SCH (08:00)
[2017-09-02] MEDS: TAMSULOSIN 0.4 MG CAP PO SCH (08:21)
[2017-09-02] MEDS: SODIUM PHOS / POTASSIUM PHOS 1 PKT PDR PO SCH ×3 (08:21→17:13)
[2017-09-02] MEDS: FOLIC ACID 1 MG TAB PO SCH (08:21)
--- NOTE | 2017-09-02 08:21 | NUR ---
DUE MEDICATION GIVEN, PT TOLERATED WELL, PT REFUSED VALPROIC ACID, MD AWARE, ALL NEEDS MET, PT CURRENTLY RESTING IN BED, NO S/S OF DISTRESS NOTED. CALL LIGHT WITHIN REACH. WILL CONTINUE TO MONITOR.
[2017-09-02] MEDS: MULTIVITAMIN/MINERALS 1 TAB PO SCH (08:22)
[2017-09-02] MEDS: metroNIDAZOLE 500 MG TAB PO SCH ×3 (08:22→17:13)
[2017-09-02] MEDS: ESCITALOPRAM 20 MG TAB PO SCH (08:22)
[2017-09-02] MEDS: predniSONE 5 MG TAB PO SCH (08:22)
[2017-09-02] MEDS: LACTOBACILLUS RHAMNOSUS GG 1 EACH CAP PO SCH (08:22)
[2017-09-02] MEDS: CHLORHEXADINE GLUC 2% CLOTH TP SCH (08:23)
[2017-09-02] MEDS: CYANOCOBALAMIN 100 MCG TAB PO SCH (08:23)
[2017-09-02] MEDS: MUPIROCIN 2% OINT 22 GM TUBE TP SCH (08:28)
[2017-09-02] MEDS: VALPROIC ACID 250 MG/5 ML UDC PO SCH ×2 (08:36→21:06)
[2017-09-02] MEDS: PSYLLIUM 12.2 GM/PKT PO SCH (08:37)
[2017-09-02] MEDS: FAMOTIDINE 20 MG TAB PO SCH (08:53)
--- NOTE | 2017-09-02 10:05 | NUR ---
CHECKED IN ON PT, PT CURRENTLY AWAKE, RESTING WELL, NO S/S OF DISTRESS NOTED. CALL LIGHT WITHIN REACH. WILL CONTINUE TO MONITOR.
[2017-09-02] MEDS: VANCOMYCIN 500 MG VIAL PO SCH ×2 (11:32→17:13)
--- NOTE | 2017-09-02 11:35 | NUR ---
DUE MEDICATIONS GIVEN, PT RESTING IN BED, ASSISTED PT WITH URINAL PT URINATED 150ML ROCKY COLOR URINE, ALL SAFETY PRECAUTIONS MET. CALL LIGHT WITHIN REACH. WILL CONTINUE TO MONITOR.
[2017-09-02 12:00] VITALS: BP 96/59
[2017-09-02] MEDS: PHARMACY COMMENTS MC SCH ×2 (12:00→18:00)
--- NOTE | 2017-09-02 14:15 | NUR ---
PT CURRENTLY AWAKE, RESTING IN BED, NO S/S OF DISTRESS NOTED. CALL LIGHT WITHIN REACH. WILL CONTINUE TO MONITOR.
[2017-09-02] MEDS: NACL 0.45% 1,000 ML IV SCH (15:12)
--- NOTE | 2017-09-02 15:57 | NUR ---
SPOKE WITH SEBASTIAN FROM [facility] THIS MORNING AND I INFORMED HER THE PATIENT WILL PROBABLY BE DISCHARGED TOMORROW. SHE IS AWARE THAT PATIENT HAS C DIF AND NEEDS ISOLATION BED.
[2017-09-02 16:00] VITALS: BP 93/53
--- NOTE | 2017-09-02 16:25 | NUR ---
CHECKED IN ON PT, ASSISTED PT WITH URINAL, ALL NEEDS MET. CALL LIGHT WITHIN REACH.
--- NOTE | 2017-09-02 17:15 | NUR ---
DUE MEDICATION GIVEN, PT SLEEPING EASILY AWAKEN, ALL SAFETY PRECAUTIONS MET. CALL LIGHT HALIMA REACH. WILL CONTINUE TO MONITOR.
--- NOTE | 2017-09-02 19:10 | NUR ---
ENDORSED PLAN OF CARE TO NIGHT NURSE, PT IN STABLE CONDITION.
--- NOTE | 2017-09-02 19:11 | NUR ---
RECD. RESTING IN BED, AWAKE, A/OX4. RESPIRATION EVEN AND UNLABORED, 02 SAT - 97%. IV OF 1/2 NS AT 75 ML/HR INFUSING, RIGHT WRIST G20. PLAN OF CARE FOR THE SHIFT DISCUSSED. VERBALIZED UNDERSTANDING. SIDE RAILS WITH PADS, ON SEIZURE PRECAUTION. ON BILATERAL LEG SEQUENTIALS. USES URINAL, WITH DIARRHEA, STILL ON IV ANTIBIOTICS. DENIES PAIN 0/10.
[2017-09-02 20:00] VITALS: BP 99/55
--- NOTE | 2017-09-02 20:00 | NUR ---
Patient's Plan of Care was discussed and reviewed with IRONWORKER WIRE FENCE ERECTOR: JESUS
--- NOTE | 2017-09-02 20:00 | NUR ---
WANTS TO VOID, ASSISTED TO USE URINAL. ABLE TO VOID 100 ML OF CLEAR YELLOW URINE.
--- NOTE | 2017-09-02 21:06 | NUR ---
DUE PO MEDICATIONS GIVEN, TOLERATED WELL.
[2017-09-02] MEDS: MAGNESIUM CHLORIDE 64 MG TABEC PO SCH (21:07)
--- NOTE | 2017-09-03 | NUR ---
SLEEPING COMFORTABLY IN BED.
[2017-09-03] MEDS: PIPER/TAZO 3.375GM/D5W PREMIX 50 ML IV SCH ×3 (00:46→12:18)
[2017-09-03 02:05] VITALS: BP 100/52
[2017-09-03] MEDS ORDERED: MORPHINE SULFATE 2 MG/ML SYR IVP PRN (02:40)
[2017-09-03 02:55] VITALS: BP 108/70
[2017-09-03 04:00] VITALS: BP 109/63
[2017-09-03] MEDS: NACL 0.45% 1,000 ML IV SCH (04:57)
[2017-09-03] MEDS: levETIRAcetam 500 MG TAB PO SCH ×2 (05:24→12:17)
[2017-09-03] MEDS: VANCOMYCIN 500 MG VIAL PO SCH ×3 (05:24→12:18)
--- NOTE | 2017-09-03 05:24 | NUR ---
DUE PO MEDICATIONS GIVEN. COOPERATIVE. TOLERATED WELL.
--- NOTE | 2017-09-03 05:35 | NUR ---
REFUSED BLOOD DRAW BY TECH, AM TECH WILL COME TO TRY TO GET BLOOD FOR TEST.
[2017-09-03] MEDS: PHARMACY COMMENTS MC SCH ×3 (06:00→12:00)
[2017-09-03] MEDS: ALBUTEROL SULFATE/IPRATROPIU 3 ML SOL IH SCH ×2 (07:01→12:00)
--- NOTE | 2017-09-03 07:20 | NUR ---
HAD ONLY TWO DIARRHEA DURING SHIFT. CONDITION REMAIN STABLE. ENDORSED TO RIANA JOE FOR CONTINUITY OF CARE.
[2017-09-03 08:00] VITALS: BP 92/68
[2017-09-03] MEDS ORDERED: BACTO TP (08:23)
[2017-09-03] MEDS ORDERED: SLOMAG PO (08:23)
[2017-09-03] MEDS ORDERED: VITB12 PO (08:23)
[2017-09-03] MEDS ORDERED: PIPE50SO2 IV (08:23)
[2017-09-03] MEDS ORDERED: ZGUARD TP (08:23)
[2017-09-03] MEDS ORDERED: VALP-22 PO (08:23)
[2017-09-03] MEDS ORDERED: FOLI1TAB90 PO (08:23)
[2017-09-03] MEDS ORDERED: MULT-1736 PO (08:23)
[2017-09-03] MEDS ORDERED: CHLO118S2 TP (08:23)
[2017-09-03] MEDS ORDERED: FAMO20TA13 PO (08:23)
[2017-09-03] MEDS ORDERED: ESCI20TA47 PO (08:23)
[2017-09-03] MEDS ORDERED: METR500T1 PO (08:23)
[2017-09-03] MEDS ORDERED: VAN500I PO (08:23)
[2017-09-03] MEDS ORDERED: PHOS1PDR4 PO (08:24)
[2017-09-03] MEDS: TAMSULOSIN 0.4 MG CAP PO SCH (08:54)
[2017-09-03] MEDS: MAGNESIUM CHLORIDE 64 MG TABEC PO SCH (08:54)
[2017-09-03] MEDS: metroNIDAZOLE 500 MG TAB PO SCH ×2 (08:54→12:17)
[2017-09-03] MEDS: predniSONE 5 MG TAB PO SCH (08:54)
[2017-09-03] MEDS: FAMOTIDINE 20 MG TAB PO SCH (08:54)
[2017-09-03] MEDS: FOLIC ACID 1 MG TAB PO SCH (08:54)
[2017-09-03] MEDS: ESCITALOPRAM 20 MG TAB PO SCH (08:54)
[2017-09-03] MEDS: MULTIVITAMIN/MINERALS 1 TAB PO SCH (08:54)
[2017-09-03] MEDS: LACTOBACILLUS RHAMNOSUS GG 1 EACH CAP PO SCH (08:55)
[2017-09-03] MEDS: SODIUM PHOS / POTASSIUM PHOS 1 PKT PDR PO SCH ×2 (08:55→12:17)
[2017-09-03] MEDS: VALPROIC ACID 250 MG/5 ML UDC PO SCH (08:56)
[2017-09-03] MEDS: CHLORHEXADINE GLUC 2% CLOTH TP SCH (08:57)
[2017-09-03] MEDS: MUPIROCIN 2% OINT 22 GM TUBE TP SCH (08:57)
[2017-09-03] MEDS: CYANOCOBALAMIN 100 MCG TAB PO SCH (08:57)
[2017-09-03] MEDS: PSYLLIUM 12.2 GM/PKT PO SCH (08:57)
--- NOTE | 2017-09-03 08:58 | NUR ---
DUE MEDICATIONS GIVEN, PT TOLERATED WELL, PT CURRENTLY RESTING IN BED, LISTENING TO TV, ALL NEEDS MET. WILL CONTINUE TO MONITOR.
--- NOTE | 2017-09-03 10:31 | NUR ---
CM NOTE PATIENT TO BE TRANSFERRED BY [facility] VIA [facility]URNEY GOING TO [facility]. RM 5B. ETA 1300. BILLY SERRANO MADE AWARE. FOR RN REPORT: [phone]
--- NOTE | 2017-09-03 10:37 | NUR ---
CM BONNIE ROSALES FROM [facility] MADE AWARE OF TRANSFER. SHE WILL BE UPDATING DIANA ON TRANSFER.
--- NOTE | 2017-09-03 10:45 | NUR ---
DISCUSSED TRANSFER PLAN WITH PT,PT VERBALIZED UNDERSTANDING, ALL NEEDS MET. WILL CONTINUE TO MONITOR.
--- NOTE | 2017-09-03 11:28 | NUR ---
GAVE REPORT TO LEXI HAJI AT [facility], CONTACTED MANAGER SUMMER DIANA ARMANDO [phone] TO INFORM OF PT TRANSFER PLAN,
[2017-09-03 11:37] LABS: HEMATOCRIT 34.8 % (36-52); HEMOGLOBIN 11.1 g/dL (12.0-18.0); MEAN CORPUSCULAR HEMOGLOBIN 34 pg (27-31); MEAN CORPUSCULAR HGB CONC 32 g/dL (33-37); MEAN CORPUSCULAR VOLUME 105 fL (80-94); PLATELET COUNT (AUTO) 147 K/uL (140-450); RED BLOOD CELL COUNT(AUTO) 3.33 MIL/uL (4.20-6.10); RED CELL DISTRIBUTION WIDTH 15.3 % (11.6-13.7)
[2017-09-03 12:00] VITALS: BP 91/41
[2017-09-03 12:11] LABS: ANION GAP 10.4 (8-16); CARBON DIOXIDE 25.2 mmol/L (21-32); CREATININE 1.1 mg/dL (0.7-1.3); POTASSIUM 3.6 mmol/L (3.5-5.1)
[2017-09-03 12:19] LABS: MAGNESIUM 1.9 mg/dL (1.8-2.4); PHOSPHORUS 2.5 mg/dL (2.5-4.9)
[2017-09-03 12:35] LABS: EOSINOPHILS % (MANUAL) 1 % (0-4); LYMPHOCYTES % (MANUAL) 43 % (20-46); MONOCYTES % (MANUAL) 6 % (5-12)
--- NOTE | 2017-09-03 12:56 | NUR ---
PT UNABLE TO SIGN DISCHARGE PAPERWORK DUE TO BLINDNESS, DISCHARGE EDUCATION GIVEN, MEDICATION EDUCATION GIVEN, PT VERBALIZED UNDERSTANDING, SACRAL PICTURE TAKEN, AWAITING FOR TRANSPORTATION
--- NOTE | 2017-09-03 13:50 | NUR ---
PT WAS PICKED UP BY [facility] TO BE TRANSFER IN STABLE CONDITION
== END 2017-09-03 13:50 | DRG 177 ==
LOC: MED 10:35 → INTOOBSV 12:42 → MTU 12:42 → OBSVTOIN 16:24
PROVIDERS: ADMIT Family Medicine Sports Medicine; ATTEND Family Medicine Sports Medicine
DX: J69.0 Pneumonitis due to inhalation of food and vomit (principal); E43 Unspecified severe protein-calorie malnutrition; N17.0 Acute kidney failure with tubular necrosis; G92 Toxic encephalopathy; G91.9 Hydrocephalus, unspecified; A04.72 Enterocolitis due to Clostridium difficile, not specified as recurrent; E87.0 Hyperosmolality and hypernatremia; D69.6 Thrombocytopenia, unspecified; K56.7 Ileus, unspecified; Z68.1 Body mass index [BMI] 19.9 or less, adult; G93.89 Other specified disorders of brain; G80.9 Cerebral palsy, unspecified; T42.6X5A Adverse effect of other antiepileptic and sedative-hypnotic drugs, initial encounter; F32.9 Major depressive disorder, single episode, unspecified; H54.7 Unspecified visual loss; J44.9 Chronic obstructive pulmonary disease, unspecified; G40.909 Epilepsy, unspecified, not intractable, without status epilepticus; E86.0 Dehydration; N18.2 Chronic kidney disease, stage 2 (mild); D50.9 Iron deficiency anemia, unspecified; E87.6 Hypokalemia; E83.39 Other disorders of phosphorus metabolism; E83.42 Hypomagnesemia; E87.8 Other disorders of electrolyte and fluid balance, not elsewhere classified; E83.51 Hypocalcemia; D53.9 Nutritional anemia, unspecified; B95.62 Methicillin resistant Staphylococcus aureus infection as the cause of diseases classified elsewhere; F41.9 Anxiety disorder, unspecified; Z88.2 Allergy status to sulfonamides; Z90.49 Acquired absence of other specified parts of digestive tract; Z90.5 Acquired absence of kidney; Y92.89 Other specified places as the place of occurrence of the external cause
CPT/HCPCS: 99285; G0378; 36415; 71010; 80048; 80053; 80305; 81001; 82140; 82607; 82728; 82746; 83036; 83540; 83605; 83690; 83735; 83880; 84100; 84439; 84443; 84484; 85025; 85045; 85610; 87040; 87045; 87070; 87081; 87086; 87205; 89055; 93005; 94640; 97110; 97116; 97140; 97530; C1758; J2001; J2270; J2543; J3370; J3475; J3480; J7030; J7512; J7620; Q0092